=== PATIENT | male | born 1965 | race Caucasian/White ===

== ENCOUNTER 2016-10-23 16:00 | Emergency (ER) | payer MEDICAID ==
[~2016-10-23] VITALS: Ht 172.7 cm; Wt 84.0 kg
[~2016-10-23 16:00] MED LIST: BUSP10TA PO; CEFD300C2 PO; DIAZ10TA4 PO; DIAZ2TAB PO; DIVA250T4 PO; FOLI-17 PO; Folic Acid PO; MULT-484 PO; MULT-750 PO; OLAN20TA3 PO; OMEP20TA62 PO; PRAZ2CAP2 PO; SERT25TA PO; THIA100T6 PO; TRAM50TA2 PO; TRAZ100T15 PO
[2016-10-23 16:06] VITALS: BP 116/87
[2016-10-23] MEDS ORDERED: ONDANSETRON 2MG/ML, 2ML IVPush ONE (16:30)
[2016-10-23] MEDS ORDERED: ONDANSETRON ODT 4 MG PO ONE (16:30)
[2016-10-23] MEDS ORDERED: SODIUM CHLORIDE FLUSH 10ML SYR IVF ONE (16:30)
[2016-10-23] MEDS ORDERED: FAMOTIDINE 20 MG/2 ML IVP ONE (16:30)
[2016-10-23] MEDS ORDERED: LORazepam 1MG TABLET PO ONE (16:30)
[2016-10-23] MEDS ORDERED: LORazepam 2 MG/ML, 1ML IVPush ONE (16:30)
[2016-10-23] MEDS ORDERED: SODIUM CHLORIDE 0.9% 1,000ML IVBOLUS ONE ×2 (16:30)
[2016-10-23] MEDS ORDERED: FAMOTIDINE 20 MG TABLET PO ONE (16:30)
[2016-10-23 16:34] LABS: HEMOGLOBIN 12.1 g/dL (13.7-18.0)
[2016-10-23 16:47] LABS: BLOOD UREA NITROGEN 8 mg/dL (7-18)
[2016-10-23 17:12] LABS: ANISOCYTOSIS 1+; MICROCYTOSIS 1+; TARGET CELLS 1+
== END 2016-10-23 17:19 | disposition left against medical advice (07) ==
LOC: ED 17:13
DX: F10.129 Alcohol abuse with intoxication, unspecified (principal); D64.9 Anemia, unspecified; J44.9 Chronic obstructive pulmonary disease, unspecified; F25.9 Schizoaffective disorder, unspecified
CPT/HCPCS: 36415; 80048; 82040; 85025; 99284

== ENCOUNTER 2016-10-25 04:37 | Emergency (ER) | payer MEDICAID ==
[~2016-10-25] VITALS: Ht 172.7 cm; Wt 81.0 kg
[2016-10-25 04:39] VITALS: BP 111/73
== END 2016-10-25 06:06 | disposition left against medical advice (07) ==
LOC: ED 06:00
DX: R06.02 Shortness of breath (principal); Z53.21 Procedure and treatment not carried out due to patient leaving prior to being seen by health care provider

== ENCOUNTER 2016-10-25 21:22 | Emergency (ER) | payer MEDICAID ==
[~2016-10-25] VITALS: Ht 172.7 cm; Wt 72.0 kg
[2016-10-25 21:25] VITALS: BP 112/70
[2016-10-25] MEDS ORDERED: ALBUTEROL/IPRATROPIUM 2.5MG/0.5MG, 3 ML NPPB ONE (22:00)
[2016-10-25] MEDS ORDERED: THIAMINE 100MG TABLET PO ONE (22:00)
[2016-10-25] MEDS ORDERED: ALBUTEROL/IPRATROPIUM 2.5MG/0.5MG, 3 ML ONE (23:00)
== END 2016-10-25 22:59 | disposition home or self-care (01) ==
LOC: ED 22:07
DX: F10.129 Alcohol abuse with intoxication, unspecified (principal); J44.9 Chronic obstructive pulmonary disease, unspecified; F10.20 Alcohol dependence, uncomplicated; F25.9 Schizoaffective disorder, unspecified
CPT/HCPCS: 71010; 94640; 99283; J7620

== ENCOUNTER 2016-10-27 20:11 | Emergency (ER) | payer MEDICAID ==
[~2016-10-27] VITALS: Ht 175.3 cm; Wt 76.0 kg
[2016-10-27 20:30] VITALS: BP 131/84
[2016-10-27] MEDS ORDERED: THIAMINE 100MG TABLET PO ONE (20:30)
[2016-10-27] MEDS ORDERED: THIAMINE 100MG TABLET ONE (20:42)
== END 2016-10-27 21:17 | disposition left against medical advice (07) ==
LOC: ED 21:11
DX: F10.120 Alcohol abuse with intoxication, uncomplicated (principal); J44.9 Chronic obstructive pulmonary disease, unspecified; F25.9 Schizoaffective disorder, unspecified
CPT/HCPCS: 99283

== ENCOUNTER 2018-01-03 11:58 | Emergency (ER) | payer MEDICAID, OTHER ==
[~2018-01-03] VITALS: Ht 172.7 cm; Wt 82.0 kg
[~2018-01-03 11:58] MED LIST changes: -CEFD300C2 PO; +CEFD300C37 PO
[2018-01-03] MEDS ORDERED: THIAMINE 100MG TABLET PO ONE (12:30)
[2018-01-03] MEDS ORDERED: ZIPRASIDONE 20 MG INJ IM ONE ×2 (13:01→13:30)
[2018-01-03 16:10] VITALS: BP 110/77
== END 2018-01-03 17:34 | disposition home or self-care (01) ==
LOC: ED 17:28
DX: F10.229 Alcohol dependence with intoxication, unspecified (principal); F22 Delusional disorders; F25.9 Schizoaffective disorder, unspecified; F17.200 Nicotine dependence, unspecified, uncomplicated; J44.9 Chronic obstructive pulmonary disease, unspecified; F43.10 Post-traumatic stress disorder, unspecified
CPT/HCPCS: 96372; 99284; J3486

== ENCOUNTER 2018-05-16 21:14 | Emergency (ER) | payer MEDICAID ==
[~2018-05-16] VITALS: Ht 172.7 cm; Wt 80.8 kg
[~2018-05-16 21:14] MED LIST changes: -THIA100T6 PO; +THIA100T67 PO; +TRAZ-137 PO; -TRAZ100T15 PO
[2018-05-16 21:16] VITALS: BP 109/67
[2018-05-16] MEDS ORDERED: ALBUTEROL SULFATE 2.5 MG/3 ML NPPB ONE (22:00)
[2018-05-16 22:11] LABS: BASOPHILS # (AUTO) 0.04 x10^3/uL (0-0.1); BASOPHILS % (AUTO) 1 % (0-1); EOSINOPHILS % (AUTO) 4 % (1-7); LYMPHOCYTES # (AUTO) 2.25 x10^3/uL (1-3.4); LYMPHOCYTES % (AUTO) 31 % (22-44); MD NO; MEAN CORPUSCULAR HEMOGLOBIN 29.7 pg (27.5-34.5); MEAN CORPUSCULAR HGB CONC 33.5 g/dL (33.2-36.2); MEAN CORPUSCULAR VOLUME 88.6 fL (81-97); MEAN PLATELET VOLUME 8.4 fL (7.4-10.4); MONOCYTES # (AUTO) 0.71 x10^3/uL (0.2-0.8); MONOCYTES % (AUTO) 10 % (2-9); NEUTROPHILS # (AUTO) 3.96 x10^3/uL (1.8-6.8); NEUTROPHILS % (AUTO) 55 % (42-75); PLATELET COUNT 268 x10^3/uL (130-400); RED BLOOD COUNT 5.34 x10^6/uL (4.38-5.82); RED CELL DISTRIBUTION WIDTH 15.4 % (9.4-14.8)
[2018-05-16] MEDS ORDERED: CARI1.5C2 PO (22:19)
[2018-05-16 22:21] LABS: ALANINE AMINOTRANSFERASE 18 U/L (12-78); ALBUMIN 3.8 g/dL (3.4-5.0); ANION GAP 7 mmol/L (5-15); CALCIUM 8.8 mg/dL (8.5-10.1); CHLORIDE 106 mmol/L (98-107); CREATININE 0.96 mg/dL (0.7-1.3); SALICYLATE LEVEL 3.9 mg/dL (2.8-20.0)
[2018-05-16 22:23] LABS: ALKALINE PHOSPHATASE 83 U/L (45-117); BILIRUBIN,TOTAL 0.4 mg/dL (0.2-1.0); TOTAL PROTEIN 8.3 g/dL (6.4-8.2)
[2018-05-16 22:24] LABS: ACETAMINOPHEN < 2 mcg/mL (10-30)
[2018-05-16 22:26] LABS: AMPHETAMINE SCREEN, URINE Negative (Negative); BARBITURATE SCREEN, URINE Negative (Negative); BENZODIAZEPINE SCREEN, URINE Positive (Negative); CANNABINOID SCREEN, URINE Negative (Negative); COCAINE SCREEN, URINE Negative (Negative); METHADONE SCREEN, URINE Negative (Negative); OPIATE SCREEN, URINE Negative (Negative)
[2018-05-16] MEDS ORDERED: ALBUTEROL/IPRATROPIUM 2.5MG/0.5MG, 3 ML ONE (22:41)
== END 2018-05-17 03:26 | disposition home or self-care (01) ==
LOC: ED 23:45
DX: F32.9 Major depressive disorder, single episode, unspecified (principal); R05 Cough; J44.9 Chronic obstructive pulmonary disease, unspecified; F25.9 Schizoaffective disorder, unspecified
CPT/HCPCS: 36415; 71045; 80053; 80307; 80329; 85025; 94640; 99285; J7613; G0480

== ENCOUNTER 2018-06-09 14:42 | Emergency (ER) | payer MEDICAID ==
[~2018-06-09] VITALS: Ht 170.2 cm; Wt 65.0 kg
[~2018-06-09 14:42] MED LIST changes: +CARI1.5C2 PO
[2018-06-09] MEDS ORDERED: THIAMINE 100MG TABLET PO ONE (15:00)
[2018-06-09 15:13] VITALS: BP 92/60
== END 2018-06-09 15:21 | disposition left against medical advice (07) ==
LOC: ED 15:15
DX: F10.120 Alcohol abuse with intoxication, uncomplicated (principal); J44.9 Chronic obstructive pulmonary disease, unspecified; F20.9 Schizophrenia, unspecified; F32.9 Major depressive disorder, single episode, unspecified; F17.200 Nicotine dependence, unspecified, uncomplicated
CPT/HCPCS: 99283

== ENCOUNTER 2019-01-03 21:13 | Emergency (ER) | payer MEDICAID ==
[~2019-01-03] VITALS: Ht 175.3 cm; Wt 84.0 kg
[2019-01-03 21:15] VITALS: BP 123/84
--- NOTE | 2019-01-03 21:19 | NUR ---
DESIRAE. REPORT RECEIVED FROM EMS. PT AMB TO ROOM WITH STEADY GAIT. +ETOT. PT HERE FOR DETOX. NO TRAUMA/LOC. PT'S AOX4. RESPS EVEN AND UNLABORED. BP/SPO2 MONITORS IN PLACE. CALL LIGHT WITHIN REACH. PA AT BEDSIDE TO ASSESS AT THIS TIME.
--- NOTE | 2019-01-03 21:30 | NUR ---
PT GIVEN DC INSTRUCTIONS. PT'S AOX4. RESPS EVEN AND UNLABORED. PT AMB TO DC WITH STEADY GAIT. TAXI VOUCHER GIVEN AT DC.
== END 2019-01-03 21:31 | disposition home or self-care (01) ==
LOC: ED 21:25
DX: F10.120 Alcohol abuse with intoxication, uncomplicated (principal); Z72.9 Problem related to lifestyle, unspecified; F17.200 Nicotine dependence, unspecified, uncomplicated; J44.9 Chronic obstructive pulmonary disease, unspecified; Z86.19 Personal history of other infectious and parasitic diseases
CPT/HCPCS: 99283

== ENCOUNTER 2019-01-13 22:52 | Emergency (ER) | payer MEDICAID ==
[~2019-01-13] VITALS: Ht 175.3 cm; Wt 70.0 kg
[2019-01-13 22:55] VITALS: BP 166/72
--- NOTE | 2019-01-13 23:14 | NUR ---
PT STATED HE WAS LEAVING TO GO TO [place], AMBULATED OUT WITH STEADY GAIT
== END 2019-01-13 23:16 | disposition left against medical advice (07) ==
LOC: ED 23:10
DX: F10.129 Alcohol abuse with intoxication, unspecified (principal); Z72.9 Problem related to lifestyle, unspecified; J44.9 Chronic obstructive pulmonary disease, unspecified; Z87.891 Personal history of nicotine dependence
CPT/HCPCS: 99283

== ENCOUNTER 2019-03-04 18:04 | Emergency (ER) | payer MEDICAID ==
[~2019-03-04] VITALS: Ht 172.7 cm; Wt 85.0 kg
[2019-03-04 18:24] VITALS: BP 116/71
== END 2019-03-04 18:37 | disposition left against medical advice (07) ==
LOC: ED 18:31
DX: F10.220 Alcohol dependence with intoxication, uncomplicated (principal); J44.9 Chronic obstructive pulmonary disease, unspecified; F25.9 Schizoaffective disorder, unspecified; F32.9 Major depressive disorder, single episode, unspecified; F29 Unspecified psychosis not due to a substance or known physiological condition; F43.10 Post-traumatic stress disorder, unspecified; Z72.9 Problem related to lifestyle, unspecified; Z75.9 Unspecified problem related to medical facilities and other health care; Z91.14 Patient's other noncompliance with medication regimen; Z63.8 Other specified problems related to primary support group; Y90.9 Presence of alcohol in blood, level not specified
CPT/HCPCS: 99283

== ENCOUNTER 2019-04-13 19:44 | Emergency (ER) | payer MEDICAID ==
[~2019-04-13] VITALS: Ht 167.6 cm; Wt 100.0 kg
== END 2019-04-13 20:14 | disposition home or self-care (01) ==
LOC: ED 20:01
DX: F10.20 Alcohol dependence, uncomplicated (principal); J44.9 Chronic obstructive pulmonary disease, unspecified; F25.9 Schizoaffective disorder, unspecified; F32.9 Major depressive disorder, single episode, unspecified; F17.200 Nicotine dependence, unspecified, uncomplicated; F43.10 Post-traumatic stress disorder, unspecified; F29 Unspecified psychosis not due to a substance or known physiological condition; Z72.9 Problem related to lifestyle, unspecified; Z75.9 Unspecified problem related to medical facilities and other health care; Z91.14 Patient's other noncompliance with medication regimen; Z63.8 Other specified problems related to primary support group; Y90.9 Presence of alcohol in blood, level not specified
CPT/HCPCS: 99283

== ENCOUNTER 2019-05-27 21:39 | Emergency (ER) | payer MEDICAID ==
[~2019-05-27] VITALS: Ht 172.7 cm; Wt 87.4 kg
--- NOTE | 2019-05-27 22:40 | NUR ---
PT TRYING TO GET UP OUT OF BED, STATED HE WANT TO LEAVE AMA. PT VERBALLY ABUSIVE TOWARD STAFF AND BALLING UP FISTS. PT UNABLE TO AMBULATE STEADLY ON OWN. PT PLACED IN TWO POINT RESTRAINTS. WILL CONTINUE TO MONITOR. SITTER AT DOOR.
--- NOTE | 2019-05-27 23:16 | NUR ---
patient requested to be removed from restraints. the criteria for restraint removal has been explained to the patient, no evidence of learning has been exhibited. patient will be given adequate amount of time to make informed decisions about his plan of care. sitter at bedside, will continue to monitor.
[2019-05-27 23:42] VITALS: BP 108/63
--- NOTE | 2019-05-27 23:42 | NUR ---
patient released from restraints. patient can ambulate without assistance. patient stated that he was ready to be discharged, md cleared patient for discharge, no noted acute distress, vital signs stable. patient given self care instructions.
--- NOTE | 2019-05-27 23:57 | NUR ---
patient given two bags of belongings.
== END 2019-05-27 23:44 | disposition home or self-care (01) ==
LOC: ED 22:18
DX: F10.120 Alcohol abuse with intoxication, uncomplicated (principal); Z72.9 Problem related to lifestyle, unspecified; J44.9 Chronic obstructive pulmonary disease, unspecified; F20.9 Schizophrenia, unspecified; F32.9 Major depressive disorder, single episode, unspecified; F43.10 Post-traumatic stress disorder, unspecified; F17.200 Nicotine dependence, unspecified, uncomplicated
CPT/HCPCS: 99281

== ENCOUNTER 2019-08-01 14:58 | Emergency (ER) | payer MEDICAID ==
[~2019-08-01] VITALS: Ht 172.7 cm; Wt 91.0 kg
[2019-08-01 15:08] VITALS: BP 110/70
[2019-08-01] MEDS ORDERED: DIPH,PERTUSS(ACELL),TET VAC/PF 0.5 ML IM-VACC ONE ×2 (15:26→15:30)
--- NOTE | 2019-08-01 15:29 | NUR ---
PT HAS FACIAL LACERATION FROM FALLING DOWN STAIRS AND SWOLLEN LEFT CHEECK, LIP. PT STATES HE IS INTOXICATED. GIVEN TOWELS TO CLEAN UP FACE. PT IS REFUSING TDAP. RN EDUCATED ABOUT TDAP INJECTIONS. PT YELLS AT RN "I DO NOT WANT NO SHOT I DONT KNOW ABOUT".PT YELLING AT RN DEMANDING PAIN MEDICINES.
--- NOTE | 2019-08-01 15:57 | NUR ---
PT ELOPED FROM ROOM, NOT SEEN ANYWHERE. GOWN ON FLOOR, MD AWARE. RN GAVE INFO TO [employer] TO SEARCH FOR PT.
[2019-08-01] MEDS ORDERED: PROP10TA51 PO (22:07)
[2019-08-01] MEDS ORDERED: TOPI100T39 PO (22:07)
[2019-08-01] MEDS ORDERED: OLAN20TA14 PO (22:07)
[2019-08-01] MEDS ORDERED: NALT50TA PO (22:07)
[2019-08-01] MEDS ORDERED: CLON1TAB11 PO (22:07)
[2019-08-01] MEDS ORDERED: ESCI20TA PO (22:07)
[2019-08-01] MEDS ORDERED: TRAZ-137 PO (22:07)
[2019-08-01] MEDS ORDERED: RISP4TAB2 PO (22:07)
[2019-08-02] MEDS ORDERED: TEMA15CA PO (12:39)
== END 2019-08-01 16:56 | disposition left against medical advice (07) ==
LOC: ED 16:51
DX: S09.93XA Unspecified injury of face, initial encounter (principal); J44.9 Chronic obstructive pulmonary disease, unspecified; F10.129 Alcohol abuse with intoxication, unspecified; Y90.0 Blood alcohol level of less than 20 mg/100 ml; W10.8XXA Fall (on) (from) other stairs and steps, initial encounter; Y93.89 Activity, other specified; Y92.410 Unspecified street and highway as the place of occurrence of the external cause; Y99.8 Other external cause status
CPT/HCPCS: 99283

== ENCOUNTER 2019-08-01 18:13 | Inpatient (IN) | payer MEDICAID ==
[~2019-08-01] VITALS: Ht 170.2 cm; Wt 85.3 kg
[2019-08-01] MEDS ORDERED: DIPH,PERTUSS(ACELL),TET VAC/PF 0.5 ML IM-VACC ONE (19:00)
[2019-08-01] MEDS ORDERED: PLEASE ENTER HEIGHT AND WEIGHT MC SCH (19:00)
--- NOTE | 2019-08-01 19:09 | NUR ---
BIB EMS FOR FACIAL INJURY. PT WAS REFUSED BY [facility] AND WAS BIB EMS. PT STATES HE FELL DOWN STAIRS. PT IS REFUSING TO GET IN GOWN. IV ESTABLISHED PER EMS, GIVEN TOWELS TO CLEAN MOUTH. PT COMPLETED CT. NOW RESTING ON GURNEY. VS STABLE.
[2019-08-01] MEDS ORDERED: CEFAZOLIN 1,000 MG IM ONE (19:42)
[2019-08-01] MEDS ORDERED: CEFAZOLIN 1,000 MG ONE (19:45)
--- NOTE | 2019-08-01 19:56 | NUR ---
MD AT BEDSIDE REQUESTING TO LOOK AT MOUTH FOR INJURY. RN ASSISTING, PT YELLING AND STATES "FUCK YOU" TO DR. DUNN. MEDICATED W ANCEF, AND TDAP. EMT ATTEMPTING TO CLEAN MOUTH
[2019-08-01] MEDS ORDERED: LORazepam 2 MG/ML, 1ML IVPush PRN (20:30)
[2019-08-01] MEDS ORDERED: BISACODYL 10 MG SUPP PR PRN (20:30)
[2019-08-01] MEDS ORDERED: POTASSIUM CHLORIDE 20 MEQ, MAGNESIUM SULFATE 2 GM, THIAMINE 200 MG, MVI ADULT 10 ML, FO... IV SCH (20:30)
[2019-08-01] MEDS ORDERED: ONDANSETRON 2MG/ML, 2ML IVPush PRN (20:30)
--- NOTE | 2019-08-01 20:30 | NUR ---
PT GIVEN GAUZE FOR MOUTH. RN INSTRUCTED PT TO STAY IN BED AND CALL FOR HELP. [facility] AT BEDSIDE.
--- NOTE | 2019-08-01 20:54 | NUR ---
PT AT SINK WASHING OUT MOUTH. RN INSTRUCTED PT TO STAY IN [facility] FOR SAFETY. REPORT TO VEANGELINA Orlando
--- NOTE | 2019-08-01 21:01 | NUR ---
REPORT TO ELIEZER
[2019-08-01 21:49] VITALS: BP 99/64
[2019-08-01 21:51] VITALS: BP 99/64
[2019-08-01] MEDS ORDERED: RISP4TAB2 PO (22:07)
[2019-08-01] MEDS ORDERED: CLON1TAB11 PO (22:07)
[2019-08-01] MEDS ORDERED: TRAZ-137 PO (22:07)
[2019-08-01] MEDS ORDERED: NALT50TA PO (22:07)
[2019-08-01] MEDS ORDERED: OLAN20TA14 PO (22:07)
[2019-08-01] MEDS ORDERED: TOPI100T39 PO (22:07)
[2019-08-01] MEDS ORDERED: ESCI20TA PO (22:07)
[2019-08-01] MEDS ORDERED: PROP10TA51 PO (22:07)
[2019-08-01] MEDS: NICOTINE 21 MG/24 HR PATCH.TD24 TD SCH (23:54)
[2019-08-02] MEDS: morphine SULFATE 10 MG/ML, 1ML IVPush PRN ×2 (03:28→04:07)
[2019-08-02 03:39] VITALS: BP 106/69
[2019-08-02 04:23] LABS: BASOPHILS # (AUTO) 0.03 x10^3/uL (0-0.1); BASOPHILS % (AUTO) 0 % (0-1); EOSINOPHILS # (AUTO) 0.26 x10^3/uL (0-0.4); EOSINOPHILS % (AUTO) 2 % (1-7); LYMPHOCYTES # (AUTO) 1.23 x10^3/uL (1-3.4); LYMPHOCYTES % (AUTO) 11 % (22-44); MD NO; MEAN CORPUSCULAR HEMOGLOBIN 30.3 pg (27.5-34.5); MEAN CORPUSCULAR HGB CONC 32.6 g/dL (33.2-36.2); MEAN CORPUSCULAR VOLUME 93.1 fL (81-97); MEAN PLATELET VOLUME 7.4 fL (7.4-10.4); MONOCYTES # (AUTO) 0.72 x10^3/uL (0.2-0.8); MONOCYTES % (AUTO) 7 % (2-9); NEUTROPHILS # (AUTO) 8.68 x10^3/uL (1.8-6.8); NEUTROPHILS % (AUTO) 80 % (42-75); PLATELET COUNT 373 x10^3/uL (130-400); RED BLOOD COUNT 4.73 x10^6/uL (4.38-5.82); RED CELL DISTRIBUTION WIDTH 17.3 % (9.4-14.8)
[2019-08-02 04:32] LABS: CHLORIDE 111 mmol/L (98-107)
[2019-08-02 04:40] LABS: ALANINE AMINOTRANSFERASE 24 U/L (12-78); ALBUMIN 3.3 g/dL (3.4-5.0); ALKALINE PHOSPHATASE 63 U/L (45-117); ANION GAP 8 mmol/L (5-15); BILIRUBIN,TOTAL 0.4 mg/dL (0.2-1.0); CALCIUM 8.1 mg/dL (8.5-10.1); TOTAL PROTEIN 7.7 g/dL (6.4-8.2)
[2019-08-02 07:19] VITALS: BP 91/66
[2019-08-02] MEDS ORDERED: LORazepam 2 MG/ML, 1ML IV PRN ×3 (08:00)
[2019-08-02] MEDS ORDERED: LORazepam 1MG TABLET PO PRN ×2 (08:00)
[2019-08-02] MEDS ORDERED: LORazepam 0.5MG TABLET PO PRN (08:00)
[2019-08-02 08:05] VITALS: BP 114/74
[2019-08-02] MEDS: MORPHINE SULFATE 4 MG/ML, 1ML IVPush PRN ×4 (08:08→20:15)
[2019-08-02 09:24] LABS: INTERNATIONAL NORMALIZED RATIO 0.93 (0.93-1.1); PROTHROMBIN TIME 9.8 Seconds (9.6-11.5)
[2019-08-02] MEDS: ACETAMINOPHEN 325 MG TABLET PO SCH ×3 (11:58→23:57)
[2019-08-02] MEDS: THIAMINE 100MG TABLET PO SCH (11:58)
[2019-08-02 12:28] VITALS: BP 127/83
[2019-08-02] MEDS ORDERED: TEMA15CA PO (12:39)
[2019-08-02] MEDS ORDERED: PRAZOSIN 2 MG CAPSULE PO PRN (13:00)
[2019-08-02 20:00] VITALS: BP 107/72
[2019-08-02] MEDS: NICOTINE 21 MG/24 HR PATCH.TD24 TD SCH (20:14)
[2019-08-02] MEDS: TEMAZEPAM 15 MG CAPSULE PO SCH (20:15)
[2019-08-02] MEDS: OLANZAPINE 5 MG TABLET PO SCH (20:15)
[2019-08-02] MEDS: TOPIRAMATE 25 MG TABLET PO SCH (20:16)
[2019-08-02] MEDS: FLUTICASONE NASAL SPRAY 16GM NAS PRN (22:35)
[2019-08-03] MEDS: TRAZODONE 100MG TABLET PO PRN ×2 (00:01→21:20)
[2019-08-03] MEDS: MORPHINE SULFATE 4 MG/ML, 1ML IVPush PRN ×7 (00:02→23:52)
[2019-08-03 00:20] VITALS: BP 99/95
[2019-08-03 04:49] LABS: BASOPHILS # (AUTO) 0.02 x10^3/uL (0-0.1); BASOPHILS % (AUTO) 0 % (0-1); EOSINOPHILS # (AUTO) 0.34 x10^3/uL (0-0.4); EOSINOPHILS % (AUTO) 5 % (1-7); LYMPHOCYTES # (AUTO) 1.23 x10^3/uL (1-3.4); LYMPHOCYTES % (AUTO) 18 % (22-44); MD NO; MEAN CORPUSCULAR HEMOGLOBIN 30.2 pg (27.5-34.5); MEAN CORPUSCULAR HGB CONC 32.2 g/dL (33.2-36.2); MEAN CORPUSCULAR VOLUME 93.7 fL (81-97); MONOCYTES % (AUTO) 10 % (2-9); NEUTROPHILS # (AUTO) 4.73 x10^3/uL (1.8-6.8); NEUTROPHILS % (AUTO) 67 % (42-75); PLATELET COUNT 248 x10^3/uL (130-400); RED BLOOD COUNT 4.36 x10^6/uL (4.38-5.82); RED CELL DISTRIBUTION WIDTH 16.5 % (9.4-14.8)
[2019-08-03] MEDS: ACETAMINOPHEN 325 MG TABLET PO SCH ×4 (05:36→23:52)
[2019-08-03] MEDS ORDERED: COCAINE TOPICAL SOLN 4%, 4ML ONE (06:58)
[2019-08-03] MEDS ORDERED: BACITRACIN OINT 500U/GM, 15 GM ONE (06:58)
[2019-08-03] MEDS ORDERED: OXYMETAZOLINE NASAL SPRAY 0.05%, 15ML ONE (06:58)
[2019-08-03] MEDS ORDERED: LIDOCAINE 1%-EPI 1:100K, 20ML ONE (06:58)
[2019-08-03] MEDS ORDERED: FENTANYL PF 250 MCG/5ML ONE (07:29)
[2019-08-03] MEDS ORDERED: MIDAZOLAM 1 MG/ML, 2ML ONE (07:29)
[2019-08-03] MEDS: ENOXAPARIN 40 MG/0.4 ML SQ SCH (07:34)
[2019-08-03] MEDS ORDERED: SUCCINYLCHOLINE 20 MG/ML, 10ML ONE (07:35)
[2019-08-03] MEDS ORDERED: PROPOFOL 10 MG/ML, 20ML ONE (07:35)
[2019-08-03] MEDS ORDERED: ONDANSETRON 2MG/ML, 2ML ONE (07:35)
[2019-08-03] MEDS ORDERED: DEXAMETHASONE 4 MG/ML, 1ML ONE (07:35)
[2019-08-03] MEDS ORDERED: OXYMETAZOLINE NASAL SPRAY 0.05%, 15ML NAS ONE (07:50)
[2019-08-03] MEDS ORDERED: COCAINE TOPICAL SOLN 4%, 4ML TP ONE (07:50)
[2019-08-03] MEDS ORDERED: PROMETHAZINE 25 MG/ML, 1ML IV PRN (08:00)
[2019-08-03] MEDS ORDERED: hydrALAzine 20 MG/ML, 1ML IV PRN (08:00)
[2019-08-03] MEDS ORDERED: OXYcodone 5 MG/5 ML ORAL.SOL UDC PO PRN (08:00)
[2019-08-03] MEDS ORDERED: HYDROmorphone 2 MG/ML, 1ML IVPush PRN (08:00)
[2019-08-03] MEDS ORDERED: MEPERIDINE/PF 25MG/ML,1ML IVPush PRN (08:00)
[2019-08-03] MEDS ORDERED: ACETAMINOPHEN 325 MG TABLET PO PRN (08:00)
[2019-08-03] MEDS ORDERED: FENTANYL PF 100 MCG/2ML IV PRN (08:00)
[2019-08-03] MEDS ORDERED: MIDAZOLAM 1 MG/ML, 2ML IV PRN (08:00)
[2019-08-03 09:12] VITALS: BP 137/69
[2019-08-03] MEDS: TOPIRAMATE 25 MG TABLET PO SCH ×2 (09:48→20:16)
[2019-08-03] MEDS: THIAMINE 100MG TABLET PO SCH (09:48)
[2019-08-03] MEDS: ESCITALOPRAM 10MG TABLET PO SCH (09:48)
[2019-08-03] MEDS: AMOXICILLIN/CLAV 875-125MG TABLET PO SCH ×2 (10:51→20:15)
[2019-08-03 14:16] VITALS: BP 103/71
[2019-08-03] MEDS: MULTIVITAMIN 1 TABLET PO SCH (17:45)
[2019-08-03] MEDS: FOLIC ACID 1 MG TABLET PO SCH (17:45)
[2019-08-03 20:00] VITALS: BP 105/71
[2019-08-03] MEDS: NICOTINE 21 MG/24 HR PATCH.TD24 TD SCH (20:15)
[2019-08-03] MEDS: TEMAZEPAM 15 MG CAPSULE PO SCH (20:15)
[2019-08-03] MEDS: OLANZAPINE 5 MG TABLET PO SCH (20:16)
[2019-08-03] MEDS: FLUTICASONE NASAL SPRAY 16GM NAS PRN (20:19)
[2019-08-04 01:12] VITALS: BP 115/75
[2019-08-04] MEDS: FLUTICASONE NASAL SPRAY 16GM NAS PRN ×2 (03:47→22:09)
[2019-08-04] MEDS: MORPHINE SULFATE 4 MG/ML, 1ML IVPush PRN (04:21)
[2019-08-04 06:15] VITALS: BP 103/65
[2019-08-04] MEDS: ACETAMINOPHEN 325 MG TABLET PO SCH ×3 (08:26→21:18)
[2019-08-04] MEDS: AMOXICILLIN/CLAV 875-125MG TABLET PO SCH ×2 (08:26→21:18)
[2019-08-04] MEDS: MULTIVITAMIN 1 TABLET PO SCH (08:26)
[2019-08-04] MEDS: FOLIC ACID 1 MG TABLET PO SCH (08:26)
[2019-08-04] MEDS: THIAMINE 100MG TABLET PO SCH (08:26)
[2019-08-04] MEDS: HYDROcodone/APAP 5/325 TABLET PO PRN ×4 (08:26→21:19)
[2019-08-04] MEDS: TOPIRAMATE 25 MG TABLET PO SCH ×2 (08:27→21:19)
[2019-08-04] MEDS: ESCITALOPRAM 10MG TABLET PO SCH (08:27)
[2019-08-04] MEDS: ENOXAPARIN 40 MG/0.4 ML SQ SCH ×2 (10:47→10:50)
[2019-08-04 12:12] VITALS: BP_SYST 111; BP_SYST 134; BP_DIAS 69; BP_DIAS 72
[2019-08-04 20:38] VITALS: BP 108/71
[2019-08-04] MEDS: NICOTINE 21 MG/24 HR PATCH.TD24 TD SCH (21:18)
[2019-08-04] MEDS: TRAZODONE 100MG TABLET PO PRN (21:18)
[2019-08-04] MEDS: OLANZAPINE 5 MG TABLET PO SCH (21:18)
[2019-08-04] MEDS: TEMAZEPAM 15 MG CAPSULE PO SCH (21:18)
[2019-08-05 00:55] VITALS: BP 112/70
[2019-08-05] MEDS: ACETAMINOPHEN 325 MG TABLET PO SCH ×4 (02:00→20:43)
[2019-08-05 06:38] VITALS: BP 98/64
[2019-08-05] MEDS: HYDROcodone/APAP 5/325 TABLET PO PRN ×4 (06:42→20:43)
[2019-08-05] MEDS: FOLIC ACID 1 MG TABLET PO SCH (08:56)
[2019-08-05] MEDS: ESCITALOPRAM 10MG TABLET PO SCH (08:56)
[2019-08-05] MEDS: AMOXICILLIN/CLAV 875-125MG TABLET PO SCH ×2 (08:56→20:42)
[2019-08-05] MEDS: THIAMINE 100MG TABLET PO SCH (08:56)
[2019-08-05] MEDS: TOPIRAMATE 25 MG TABLET PO SCH ×2 (08:57→20:42)
[2019-08-05] MEDS: MULTIVITAMIN 1 TABLET PO SCH (08:57)
[2019-08-05] MEDS: ENOXAPARIN 40 MG/0.4 ML SQ SCH (11:04)
[2019-08-05 12:33] VITALS: BP 97/63
[2019-08-05 20:03] VITALS: BP 115/68
[2019-08-05] MEDS: OLANZAPINE 5 MG TABLET PO SCH (20:42)
[2019-08-05] MEDS: TRAZODONE 100MG TABLET PO PRN (20:42)
[2019-08-05] MEDS: TEMAZEPAM 15 MG CAPSULE PO SCH (20:42)
[2019-08-05] MEDS: NICOTINE 21 MG/24 HR PATCH.TD24 TD SCH (20:43)
[2019-08-06 01:05] VITALS: BP 117/68
[2019-08-06] MEDS: ACETAMINOPHEN 325 MG TABLET PO SCH ×4 (01:28→19:17)
[2019-08-06] MEDS: HYDROcodone/APAP 5/325 TABLET PO PRN ×5 (02:58→20:20)
[2019-08-06] MEDS: LORazepam 0.5MG TABLET PO PRN ×2 (03:01→12:19)
[2019-08-06] MEDS: TOPIRAMATE 25 MG TABLET PO SCH ×2 (07:39→20:20)
[2019-08-06] MEDS: AMOXICILLIN/CLAV 875-125MG TABLET PO SCH ×2 (07:39→20:20)
[2019-08-06] MEDS: MULTIVITAMIN 1 TABLET PO SCH (07:39)
[2019-08-06] MEDS: FOLIC ACID 1 MG TABLET PO SCH (07:39)
[2019-08-06] MEDS: THIAMINE 100MG TABLET PO SCH (07:39)
[2019-08-06] MEDS: ESCITALOPRAM 10MG TABLET PO SCH (07:39)
[2019-08-06] MEDS: FLUTICASONE NASAL SPRAY 16GM NAS PRN ×2 (07:40→14:05)
[2019-08-06] MEDS: ENOXAPARIN 40 MG/0.4 ML SQ SCH (07:43)
[2019-08-06 08:21] VITALS: BP 103/70
[2019-08-06 12:19] VITALS: BP 106/70
[2019-08-06 19:51] VITALS: BP 111/77
[2019-08-06] MEDS: NICOTINE 21 MG/24 HR PATCH.TD24 TD SCH (20:19)
[2019-08-06] MEDS: OLANZAPINE 5 MG TABLET PO SCH (20:20)
[2019-08-06] MEDS: TEMAZEPAM 15 MG CAPSULE PO SCH (20:20)
[2019-08-06] MEDS ORDERED: TRAZODONE 100MG TABLET PO PRN (22:30)
[2019-08-07] MEDS: ACETAMINOPHEN 325 MG TABLET PO SCH ×4 (01:08→20:00)
[2019-08-07 02:20] VITALS: BP 115/74
[2019-08-07] MEDS: HYDROcodone/APAP 5/325 TABLET PO PRN ×5 (02:20→20:32)
[2019-08-07 07:16] VITALS: BP 82/50
[2019-08-07] MEDS: MULTIVITAMIN 1 TABLET PO SCH (08:10)
[2019-08-07] MEDS: THIAMINE 100MG TABLET PO SCH (08:10)
[2019-08-07] MEDS: FOLIC ACID 1 MG TABLET PO SCH (08:10)
[2019-08-07] MEDS: AMOXICILLIN/CLAV 875-125MG TABLET PO SCH ×2 (08:10→20:31)
[2019-08-07] MEDS: ESCITALOPRAM 10MG TABLET PO SCH (08:10)
[2019-08-07] MEDS: TOPIRAMATE 25 MG TABLET PO SCH ×2 (08:10→20:31)
[2019-08-07] MEDS: ENOXAPARIN 40 MG/0.4 ML SQ SCH (08:14)
[2019-08-07] MEDS: LORazepam 0.5MG TABLET PO PRN ×2 (12:02→20:32)
[2019-08-07 13:08] VITALS: BP 102/68
[2019-08-07 19:02] VITALS: BP 109/73
[2019-08-07] MEDS: OLANZAPINE 5 MG TABLET PO SCH (20:31)
[2019-08-07] MEDS: TEMAZEPAM 15 MG CAPSULE PO SCH (20:31)
[2019-08-07] MEDS: NICOTINE 21 MG/24 HR PATCH.TD24 TD SCH (20:32)
[2019-08-08 01:39] VITALS: BP 106/72
[2019-08-08] MEDS: ACETAMINOPHEN 325 MG TABLET PO SCH ×2 (02:00→07:49)
[2019-08-08] MEDS: HYDROcodone/APAP 5/325 TABLET PO PRN ×2 (03:49→07:50)
[2019-08-08 05:33] LABS: BASOPHILS # (AUTO) 0.06 x10^3/uL (0-0.1); BASOPHILS % (AUTO) 1 % (0-1); EOSINOPHILS # (AUTO) 0.37 x10^3/uL (0-0.4); EOSINOPHILS % (AUTO) 5 % (1-7); LYMPHOCYTES # (AUTO) 2.05 x10^3/uL (1-3.4); LYMPHOCYTES % (AUTO) 28 % (22-44); MD NO; MEAN CORPUSCULAR HEMOGLOBIN 29.8 pg (27.5-34.5); MEAN CORPUSCULAR HGB CONC 32.6 g/dL (33.2-36.2); MEAN CORPUSCULAR VOLUME 91.5 fL (81-97); MEAN PLATELET VOLUME 8.2 fL (7.4-10.4); MONOCYTES # (AUTO) 0.73 x10^3/uL (0.2-0.8); MONOCYTES % (AUTO) 10 % (2-9); NEUTROPHILS # (AUTO) 4.23 x10^3/uL (1.8-6.8); NEUTROPHILS % (AUTO) 57 % (42-75); PLATELET COUNT 301 x10^3/uL (130-400); RED CELL DISTRIBUTION WIDTH 16.3 % (9.4-14.8)
[2019-08-08 05:40] LABS: CHLORIDE 111 mmol/L (98-107)
[2019-08-08 05:44] LABS: ANION GAP 7 mmol/L (5-15); CALCIUM 8.6 mg/dL (8.5-10.1)
[2019-08-08 07:15] VITALS: BP 103/70
[2019-08-08] MEDS: FOLIC ACID 1 MG TABLET PO SCH (07:50)
[2019-08-08] MEDS: TOPIRAMATE 25 MG TABLET PO SCH (07:50)
[2019-08-08] MEDS: MULTIVITAMIN 1 TABLET PO SCH (07:50)
[2019-08-08] MEDS: AMOXICILLIN/CLAV 875-125MG TABLET PO SCH (07:50)
[2019-08-08] MEDS: ESCITALOPRAM 10MG TABLET PO SCH (07:50)
[2019-08-08] MEDS: ENOXAPARIN 40 MG/0.4 ML SQ SCH (07:51)
[2019-08-08] MEDS: THIAMINE 100MG TABLET PO SCH (07:51)
[2019-08-08] MEDS ORDERED: HYDR-3237 PO (10:47)
[2019-08-08 10:51] VITALS: BP 99/67
== END 2019-08-08 11:48 | disposition home or self-care (01) | DRG 155 ==
LOC: ED 19:33 → EDIP 20:07 → 4EST 21:27 → DCLOUNGE 08-08 11:42
PROVIDERS: ADMIT Internal Medicine; ATTEND Hospitalist
PROC: 0NSBXZZ Reposition Nasal Bone, External Approach (ICD-10-PCS; principal; 2019-08-03 07:30)
DX: S02.2XXA Fracture of nasal bones, initial encounter for closed fracture (principal); S02.32XA Fracture of orbital floor, left side, initial encounter for closed fracture; F10.239 Alcohol dependence with withdrawal, unspecified; W10.9XXA Fall (on) (from) unspecified stairs and steps, initial encounter; F10.220 Alcohol dependence with intoxication, uncomplicated; F17.210 Nicotine dependence, cigarettes, uncomplicated; F25.9 Schizoaffective disorder, unspecified; F32.9 Major depressive disorder, single episode, unspecified; H05.89 Other disorders of orbit; L40.9 Psoriasis, unspecified; Z79.899 Other long term (current) drug therapy; Z81.8 Family history of other mental and behavioral disorders; Z91.19 Patient's noncompliance with other medical treatment and regimen; Y93.89 Activity, other specified; Y92.89 Other specified places as the place of occurrence of the external cause; Y99.8 Other external cause status
CPT/HCPCS: 36415; 99285; J7042; 70486; 80048; 80053; 85025; 85610; 90715; G0378; J1100; J1650; J2250; J2405; J2704; J3010; J3411; J3475; J3480; J3490; J0330; J2060; J2270

== ENCOUNTER 2019-08-08 20:42 | Emergency (ER) | payer MEDICAID ==
[~2019-08-08] VITALS: Ht 172.7 cm; Wt 88.0 kg
[~2019-08-08 20:42] MED LIST changes: +CLON1TAB11 PO; +ESCI20TA PO; +HYDR-3237 PO; +NALT50TA PO; +OLAN20TA14 PO; +PROP10TA51 PO; +RISP4TAB2 PO; +TEMA15CA PO; +TOPI100T39 PO
[2019-08-08 20:47] VITALS: BP 116/83
--- NOTE | 2019-08-08 21:34 | NUR ---
PT UP AND WALKING OUT AMBULANCE BAY. PT REFUSING REQUESTS TO STOP.
--- NOTE | 2019-08-08 21:35 | NUR ---
PT OUTSIDE SMOKING. REFUSING TO RETURN TO ED.
== END 2019-08-08 21:39 | disposition left against medical advice (07) ==
LOC: ED 21:15
DX: F20.9 Schizophrenia, unspecified (principal); F10.120 Alcohol abuse with intoxication, uncomplicated; F17.200 Nicotine dependence, unspecified, uncomplicated; J44.9 Chronic obstructive pulmonary disease, unspecified; F29 Unspecified psychosis not due to a substance or known physiological condition; F43.10 Post-traumatic stress disorder, unspecified; L40.9 Psoriasis, unspecified; M51.36 Other intervertebral disc degeneration, lumbar region; Z86.19 Personal history of other infectious and parasitic diseases; Z72.9 Problem related to lifestyle, unspecified; Z91.14 Patient's other noncompliance with medication regimen; Z75.9 Unspecified problem related to medical facilities and other health care; Y90.9 Presence of alcohol in blood, level not specified
CPT/HCPCS: 99283

== ENCOUNTER 2019-08-17 17:46 | Emergency (ER) | payer MEDICAID ==
[~2019-08-17] VITALS: Ht 175.3 cm; Wt 81.0 kg
[2019-08-17 17:59] VITALS: BP 116/78
--- NOTE | 2019-08-17 18:02 | NUR ---
pt to ed biba. seizure after trying not to drink x12 days. 4-5 pints/day. drank 1.5 24 oz beers after sz . sts hx etoh abuse, seizures. a&ox4. not cooperating w/ staff, security at bedside. c/o head/neck pain, refused c collar. vss. pupils dilated, 5 and sluggish. denies drug use. ARVIZU, 5/5 strength. call savage in reach, side rails up, fall precuations. ermc at bedside for eval. as
[2019-08-17 18:41] LABS: BASOPHILS # (AUTO) 0.03 x10^3/uL (0-0.1); BASOPHILS % (AUTO) 0 % (0-1); EOSINOPHILS # (AUTO) 0.21 x10^3/uL (0-0.4); EOSINOPHILS % (AUTO) 2 % (1-7); LYMPHOCYTES # (AUTO) 1.98 x10^3/uL (1-3.4); LYMPHOCYTES % (AUTO) 22 % (22-44); MD NO; MEAN CORPUSCULAR HEMOGLOBIN 29.5 pg (27.5-34.5); MEAN CORPUSCULAR HGB CONC 32.5 g/dL (33.2-36.2); MEAN CORPUSCULAR VOLUME 90.8 fL (81-97); MEAN PLATELET VOLUME 8.1 fL (7.4-10.4); MONOCYTES # (AUTO) 0.57 x10^3/uL (0.2-0.8); MONOCYTES % (AUTO) 6 % (2-9); NEUTROPHILS # (AUTO) 6.32 x10^3/uL (1.8-6.8); NEUTROPHILS % (AUTO) 69 % (42-75); PLATELET COUNT 288 x10^3/uL (130-400); RED CELL DISTRIBUTION WIDTH 16.3 % (9.4-14.8)
[2019-08-17 18:54] LABS: ALANINE AMINOTRANSFERASE 24 U/L (12-78); ALBUMIN 3.9 g/dL (3.4-5.0); ANION GAP 12 mmol/L (5-15); CALCIUM 8.4 mg/dL (8.5-10.1); CHLORIDE 109 mmol/L (98-107); CREATININE 0.87 mg/dL (0.7-1.3); SALICYLATE LEVEL 1.8 mg/dL (2.8-20.0)
[2019-08-17 18:56] LABS: ALKALINE PHOSPHATASE 105 U/L (45-117); BILIRUBIN,TOTAL 0.2 mg/dL (0.2-1.0); TOTAL PROTEIN 8.4 g/dL (6.4-8.2)
--- NOTE | 2019-08-17 19:25 | NUR ---
head/neck scan clear, awaiting lab resutls. vss. asking for food. as
== END 2019-08-17 20:12 ==
LOC: ED 19:45
DX: G40.319 Generalized idiopathic epilepsy and epileptic syndromes, intractable, without status epilepticus (principal); R55 Syncope and collapse; M54.2 Cervicalgia
CPT/HCPCS: 36415; 70450; 72125; 80053; 80307; 82140; 83605; 85025; 93005; 99284

== ENCOUNTER 2019-08-29 18:05 | Emergency (ER) | payer MEDICAID ==
[~2019-08-29] VITALS: Ht 175.3 cm; Wt 81.0 kg
[2019-08-29 18:48] VITALS: BP 114/74
--- NOTE | 2019-08-29 20:15 | NUR ---
pt up and trying to leave, encouraged to wait a bit longer, back in chair at this time
--- NOTE | 2019-08-29 20:52 | NUR ---
PT ELOPED OUT AMBULANCE BAY WITH STEADY GAIT
== END 2019-08-29 20:54 | disposition left against medical advice (07) ==
LOC: ED 18:50
DX: F10.129 Alcohol abuse with intoxication, unspecified (principal); J44.0 Chronic obstructive pulmonary disease with (acute) lower respiratory infection; Y90.9 Presence of alcohol in blood, level not specified
CPT/HCPCS: 99283

== ENCOUNTER 2019-09-26 20:15 | Emergency (ER) | payer MEDICAID ==
[~2019-09-26] VITALS: Ht 180.3 cm; Wt 89.1 kg
[~2019-09-26 20:15] MED LIST changes: -TRAZ-137 PO; +TRAZ-175 PO
--- NOTE | 2019-09-26 20:24 | NUR ---
BIB [facility] AFTER MECHANICAL GLF. +ETOH. PT HAS LACERATION TO BACK OF HEAD. PT CONNECTED TO MONITORING. CALL LIGHT IN REACH. AWAITING ORDERS AT THIS TIME.
--- NOTE | 2019-09-26 20:54 | NUR ---
THIS NURSE WAS CALLED TO PT ROOM. PT HAD BEEN FOUND ON FLOOR. PT ASSESSED AND MOVING ALL EXTREMITIES APROPRIATELY. NEW LACERATION NOTICED OVER LEFT EYE. PT ASSISTED BACK TO BED AND RECONNECTED TO MONITORING. A COUPLE MINUTES LATER THIS NURSE WAS CALLED TO PT ROOM TO FIND PT ON THE FLOOR AGAIN. PT ASSESSED AND MOVING ALL EXTREMITIES APPROPRIATELY. PT MATRESS PLACED ON FLOOR FOR SAFETY. PT RESTING COMFORTABLY ON GURNEY. CONNECTED TO MONITORING. SITTER AT BEDSIDE FOR SAFETY. MD NOTIFIED. CHARGE/PHLEBOTOMIST NOTIFIED.
[2019-09-26 20:55] LABS: BASOPHILS # (AUTO) 0.06 x10^3/uL (0-0.1); BASOPHILS % (AUTO) 1 % (0-1); EOSINOPHILS # (AUTO) 0.26 x10^3/uL (0-0.4); EOSINOPHILS % (AUTO) 3 % (1-7); LYMPHOCYTES # (AUTO) 2.34 x10^3/uL (1-3.4); LYMPHOCYTES % (AUTO) 26 % (22-44); MD NO; MEAN CORPUSCULAR HEMOGLOBIN 29.9 pg (27.5-34.5); MEAN CORPUSCULAR HGB CONC 32.9 g/dL (33.2-36.2); MEAN PLATELET VOLUME 8.4 fL (7.4-10.4); MONOCYTES # (AUTO) 0.87 x10^3/uL (0.2-0.8); MONOCYTES % (AUTO) 10 % (2-9); NEUTROPHILS # (AUTO) 5.36 x10^3/uL (1.8-6.8); NEUTROPHILS % (AUTO) 60 % (42-75); PLATELET COUNT 222 x10^3/uL (130-400); RED BLOOD COUNT 4.72 x10^6/uL (4.38-5.82); RED CELL DISTRIBUTION WIDTH 15.1 % (9.4-14.8)
--- NOTE | 2019-09-26 21:00 | NUR ---
SITTER TO ROOM FOR SAFETY
[2019-09-26 21:06] LABS: ALBUMIN 3.4 g/dL (3.4-5.0); ANION GAP 5 mmol/L (5-15); CALCIUM 8.3 mg/dL (8.5-10.1); CHLORIDE 107 mmol/L (98-107); CREATININE 1.09 mg/dL (0.7-1.3)
--- NOTE | 2019-09-26 21:06 | NUR ---
PT PLACED BACK ON [facility] FOR CT. CONTROL TOWER OPERATOR WENT WITH PT TO CT FOR SAFETY.
[2019-09-26 21:16] LABS: ALANINE AMINOTRANSFERASE 89 U/L (12-78); ALKALINE PHOSPHATASE 73 U/L (45-117); BILIRUBIN,TOTAL 0.1 mg/dL (0.2-1.0); TOTAL PROTEIN 7.7 g/dL (6.4-8.2)
[2019-09-26] MEDS ORDERED: LIDOCAINE 1%-EPI 1:100K, 20ML ONE (22:12)
--- NOTE | 2019-09-26 22:23 | NUR ---
PT RESTING ON MATRESS ON FLOOR AFTER RETURNING FROM CT. PT IN GOWN AND WARM BLANKET PROVIDED. PT MTF UNTIL SOBER ENOUGH FOR SUTURES. PT IN DIRECT SIGHT OF SITTER FOR SAFETY. LIDO PULLED FOR PROVIDER ADMIN.
[2019-09-26] MEDS ORDERED: LIDOCAINE 1%-EPI 1:100K, 20ML SQ ONE (22:30)
--- NOTE | 2019-09-26 23:52 | NUR ---
PT SITTING ON MATTRESS EATING SNACK. SITTER AT BEDSIDE.
--- NOTE | 2019-09-27 00:10 | NUR ---
REPORT GIVEN TO SAMUEL WOO
--- NOTE | 2019-09-27 00:19 | NUR ---
RPT RECEIVED FROM CHILO DUMAS. ASSUMED CARE OF PT.
--- NOTE | 2019-09-27 01:22 | NUR ---
PT UP AND MOVING AROUND ROOM FOR PAST 30 MINS STATING HE IS READY TO LEAVE. PT A&O 4.
[2019-09-27 01:25] VITALS: BP 141/80
== END 2019-09-27 01:26 | disposition home or self-care (01) ==
LOC: ED 09-27 00:07
DX: S01.01XA Laceration without foreign body of scalp, initial encounter (principal); F10.120 Alcohol abuse with intoxication, uncomplicated; F17.200 Nicotine dependence, unspecified, uncomplicated; J44.9 Chronic obstructive pulmonary disease, unspecified; G40.909 Epilepsy, unspecified, not intractable, without status epilepticus; Y90.0 Blood alcohol level of less than 20 mg/100 ml; W01.0XXA Fall on same level from slipping, tripping and stumbling without subsequent striking against object, initial encounter; Y93.89 Activity, other specified; Y92.410 Unspecified street and highway as the place of occurrence of the external cause; Y99.8 Other external cause status
CPT/HCPCS: 36415; 70450; 70486; 72125; 80053; 80307; 85025; 99285

== ENCOUNTER 2019-09-27 08:23 | Emergency (ER) | payer MEDICAID ==
[~2019-09-27] VITALS: Ht 172.7 cm; Wt 90.0 kg
--- NOTE | 2019-09-27 08:47 | NUR ---
PT. ARRIVES BY [facility] WITH C/O PUBLIC INTOXICATION. PT. IS UNABLE TO AMBULATE WELL. PT. HAS A STRONG LOOSE COUGH, A LACERATION TO THE LEFT EYE AND TOP OF HIS HEAD AND LEFT KNEE PAIN. PT.'S BGL IS 88. PT. IS A & O X 4 WITH A GCS OF 15. LUNGS HAVE COURSE RHONCHI THROUGHOUT. PT. IS NON-COMPLIANT WITH COVERING HIS COUGH SO A MASK WAS PLACED OVER HIS MOUTH. PT. WAS PLACED ON 2 LITERS 02 TO MAINTAIN HIS SPO2 GREATER THAN 94%. PT.'S CXR WAS DONE. PT. HAS THE BP CUFF AND PULSE OX IN PLACE. PT. WAS GIVEN A URINAL TO VOID. PT. WAS GIVEN PO FLUID IN A CUP. DR. RUIZ ENTERED THE ROOM THE PT. FLIPPED HER OFF. RN ESTABLISHED RULES OF RESPECT WITH THE PT. AND INFORMED HIM VULGARITY IS NOT ACCEPTABLE. PT. WAS INSTRUCTED THAT HE WILL BE TREATED WITH RESPECT AND THE SAME IS EXPECTED. PT.'S ABD. IS SOFT AND NON-TENDER WITH BS + X 4 QUADS. PT. HAS PSORIASIS PRESENT ON HIS LOWER EXTREMITIES. PT. WAS AMBULATORY TO ROOM 17 UPON ARRIVAL.
[2019-09-27] MEDS ORDERED: SODIUM CHLORIDE FLUSH 10ML SYR IVF ONE (09:00)
[2019-09-27 09:01] VITALS: BP 94/64
--- NOTE | 2019-09-27 10:10 | NUR ---
PT. IS WONDERING THE HALLS YELLING PROFANITIES AT THE STAFF. PT. WAS ASKED TO RETURN TO HIS ROOM AND HE CALLED THE RN A "BITCH". PT. WAS INSTRUCTED IF HIS BEHAVIOR CONTINUES SECURITY WOULD BE NOTIFIED.
--- NOTE | 2019-09-27 10:24 | NUR ---
PT.'S DRESSED. DISCHARGE INSTRUCTIONS GIVEN. PT. WAS ESCORTED OUT BY SECURITY. PT. IS REFUSING TX.
== END 2019-09-27 10:30 | disposition home or self-care (01) ==
LOC: ED 09:24
DX: J20.8 Acute bronchitis due to other specified organisms (principal); F10.20 Alcohol dependence, uncomplicated; Y90.0 Blood alcohol level of less than 20 mg/100 ml; J44.9 Chronic obstructive pulmonary disease, unspecified; F17.200 Nicotine dependence, unspecified, uncomplicated; G40.909 Epilepsy, unspecified, not intractable, without status epilepticus; Z86.19 Personal history of other infectious and parasitic diseases; Z72.9 Problem related to lifestyle, unspecified
CPT/HCPCS: 71045; 82962; 99283

== ENCOUNTER 2019-10-02 12:42 | Emergency (ER) | payer MEDICAID ==
[~2019-10-02] VITALS: Ht 172.7 cm; Wt 98.7 kg
--- NOTE | 2019-10-02 12:56 | NUR ---
PT SAYS "I WILL BREAK YOUR TEETH AND SHOVE THEM DOWN YOUR THROAT". ALSO STATED "HE WOULD BEAT MY ASS IN A DARK ALLEY".
--- NOTE | 2019-10-02 13:05 | NUR ---
PT IS REFUSING TO ANSWER QUESTIONS. PT IS REFUSING ALL INTERVENTIONS. WONT LET ME CONDUCT AN ASSESSMENT OR TAKE VITALS.
--- NOTE | 2019-10-02 13:25 | NUR ---
PT RIPPED OFF PULSE OX. A NEW ONE HAS BEEN PLACED ON IT
[2019-10-02 14:30] LABS: ALBUMIN 3.1 g/dL (3.4-5.0); ANION GAP 8 mmol/L (5-15); CALCIUM 7.9 mg/dL (8.5-10.1); CHLORIDE 114 mmol/L (98-107); CREATININE 0.96 mg/dL (0.7-1.3)
--- NOTE | 2019-10-02 15:52 | NUR ---
PT RIPPED OUT HIS IV. CONTINUED TO THREATEN ME BY SAYING HE WOULD PUNCH ME AND HE CALLED ME "MOTHER FUCKER".
--- NOTE | 2019-10-02 16:18 | NUR ---
PT SAID "GET ME A JONAWHICH MOTHER FUCKER". WHEN I ASKED HIM TO SIT BACK DOWN HE DUMPED A FULL URINAL ALL OVER THE GURNEY AND WALKED OUT. HE AMBULATED UNDER HIS OWN POWER WITH A STEADY GAIT AND DID NOT USE THE LOPEZ OR HAND RAILS FOR SUPPORT.
== END 2019-10-02 16:21 | disposition left against medical advice (07) ==
LOC: ED 16:15
DX: F10.229 Alcohol dependence with intoxication, unspecified (principal); R58 Hemorrhage, not elsewhere classified; Y90.9 Presence of alcohol in blood, level not specified
CPT/HCPCS: 36415; 80048; 80307; 82040; 99283

== ENCOUNTER 2019-10-09 13:36 | Emergency (ER) | payer MEDICAID ==
[~2019-10-09] VITALS: Ht 177.8 cm; Wt 85.0 kg
--- NOTE | 2019-10-09 14:15 | NUR ---
MD RYAN. NO LEGAL HOLD.
--- NOTE | 2019-10-09 14:30 | NUR ---
TO CT VIA [facility]
--- NOTE | 2019-10-09 15:10 | NUR ---
PT FOUND IN ROOM SMOKING, BELONGINGS TAKEN OUT OF ROOM, UNSTEADY GAIT BACK TO BED, GRAPHIC DESIGN SPECIALIST WATCHING.
--- NOTE | 2019-10-09 16:03 | NUR ---
pt laying in bed, respirations even and unlabored, lights of to promote rest, eyes closed, remains in sight of prepared foods team leader.
--- NOTE | 2019-10-09 16:27 | NUR ---
pt condition unchanged, medical coding technician still watching.
--- NOTE | 2019-10-09 17:18 | NUR ---
attempted breathalizer, pt could not blow long enough to make it work.
--- NOTE | 2019-10-09 17:44 | NUR ---
pt back to sleeping
--- NOTE | 2019-10-09 18:24 | NUR ---
pt laying in bed, respirations even and unlabored, food at bedside.
--- NOTE | 2019-10-09 18:49 | NUR ---
report given to jayme cano.
--- NOTE | 2019-10-09 21:00 | NUR ---
Received report from joey that pt became nauseated and vomited in the room. Pt now sleeping again.
--- NOTE | 2019-10-09 22:16 | NUR ---
Pt reassessed. Pt states he doesn't "feel well" stating "everything" hurts and the pain started "just now". Pt offered Tylenol for pain and stated "I don't want that". VS obtained. Pt is at 89% room air currently and reports Hx of COPD stating he uses O2 "when I can get some".
--- NOTE | 2019-10-09 23:03 | NUR ---
Pt informed he was being discharged. Pt got dressed and left without discharge papers.
[2019-10-09 23:06] VITALS: BP 109/63
== END 2019-10-09 23:09 | disposition home or self-care (01) ==
LOC: ED 23:00
DX: F10.120 Alcohol abuse with intoxication, uncomplicated (principal); F17.200 Nicotine dependence, unspecified, uncomplicated; J44.9 Chronic obstructive pulmonary disease, unspecified; R51 Headache; G40.909 Epilepsy, unspecified, not intractable, without status epilepticus; Y90.0 Blood alcohol level of less than 20 mg/100 ml
CPT/HCPCS: 70450; 99284

== ENCOUNTER 2020-05-05 15:19 | Inpatient (IN) | payer MEDICAID ==
[~2020-05-05] VITALS: Ht 172.7 cm; Wt 106.1 kg
--- NOTE | 2020-05-05 15:34 | NUR ---
BIB [facility] FOR C/O SOB AND DIZZINESS. PT WAS FOUND SITTING ON SIDEWALK. WAS DX W/ PNA RECENTLY AND TREATED AT [facility]. PT STATES CURRENTLY WITHDRAWING FROM ETOH AND BENZOS. LAST TOOK CLONAZEPAM 3 DAYS AGO AND ETOH A FEW HRS AGO. DRINKS 3/5 PINT VODKA DAILY. HX COPD AND IS DRINKER. HR 125, BP 134/76. EKG CMPLETED. PT RESTING ON GURNEY. KASANDRA. ROMEO BIRD AT BEDSIDE FOR EVAL.
[2020-05-05] MEDS ORDERED: ALBUTEROL SULFATE 2.5 MG/3 ML ONE (15:59)
[2020-05-05] MEDS ORDERED: THIAMINE 100MG TABLET ONE (15:59)
[2020-05-05] MEDS ORDERED: ASPIRIN 81 MG TABLET CHEW ONE (15:59)
[2020-05-05] MEDS ORDERED: LORazepam 1MG TABLET ONE (15:59)
[2020-05-05] MEDS ORDERED: SODIUM CHLORIDE FLUSH 10ML SYR IVF ONE (16:00)
[2020-05-05] MEDS ORDERED: LORazepam 1MG TABLET PO ONE (16:00)
[2020-05-05] MEDS ORDERED: THIAMINE 100MG TABLET PO ONE (16:00)
[2020-05-05] MEDS ORDERED: ASPIRIN 81 MG TABLET CHEW PO ONE (16:00)
[2020-05-05] MEDS ORDERED: ALBUTEROL/IPRATROPIUM 2.5MG/0.5MG, 3 ML NPPB SCH (16:00)
[2020-05-05] MEDS ORDERED: ALBUTEROL/IPRATROPIUM 2.5MG/0.5MG, 3 ML ONE (16:04)
[2020-05-05 16:10] LABS: BASOPHILS # (AUTO) 0.02 x10^3/uL (0-0.1); BASOPHILS % (AUTO) 0 % (0-1); EOSINOPHILS % (AUTO) 0 % (1-7); LYMPHOCYTES # (AUTO) 0.78 x10^3/uL (1-3.4); LYMPHOCYTES % (AUTO) 6 % (22-44); MD NO; MEAN CORPUSCULAR HEMOGLOBIN 26.4 pg (27.5-34.5); MEAN CORPUSCULAR HGB CONC 31.9 g/dL (33.2-36.2); MEAN PLATELET VOLUME 7.9 fL (7.4-10.4); MONOCYTES # (AUTO) 0.69 x10^3/uL (0.2-0.8); MONOCYTES % (AUTO) 5 % (2-9); NEUTROPHILS # (AUTO) 11.37 x10^3/uL (1.8-6.8); NEUTROPHILS % (AUTO) 88 % (42-75); PLATELET COUNT 324 x10^3/uL (130-400); RED BLOOD COUNT 5.24 x10^6/uL (4.38-5.82); RED CELL DISTRIBUTION WIDTH 18.1 % (9.4-14.8)
[2020-05-05 16:16] LABS: ALANINE AMINOTRANSFERASE 33 U/L (12-78); ANION GAP 14 mmol/L (5-15); CALCIUM 8.7 mg/dL (8.5-10.1); CHLORIDE 98 mmol/L (98-107)
[2020-05-05 16:21] LABS: ALKALINE PHOSPHATASE 95 U/L (45-117); BILIRUBIN,TOTAL 0.3 mg/dL (0.2-1.0); TOTAL PROTEIN 8.3 g/dL (6.4-8.2); TROPONIN I < 0.015 ng/mL (0.000-0.045)
--- NOTE | 2020-05-05 16:26 | NUR ---
PT SLEEPING ON GURNEY. NADN. HR NOTED TO BE 121. ROMEO BIRD NOTIFIED. WILL CONTINUE TO MONITOR.
--- NOTE | 2020-05-05 17:11 | NUR ---
PT HR REMAINS ELEVATED AT 119. [facility] NOTIFIED. NEW ORDERS FOR 500 ML NS BOLUS ORDERED.
[2020-05-05] MEDS ORDERED: SODIUM CHLORIDE 0.9% 1,000ML IVBOLUS ONE (17:30)
--- NOTE | 2020-05-05 18:51 | NUR ---
PT RESTING ON DEBBIE. VSS. HR REMAINS AT 111-113
--- NOTE | 2020-05-05 18:58 | NUR ---
REPORT GIVEN TO RENATO ERVIN RN.
--- NOTE | 2020-05-05 20:59 | NUR ---
COVID swab collected and walked to lab.
[2020-05-05] MEDS ORDERED: POTASSIUM CHLORIDE 10 MEQ, MVI ADULT 10 ML, FOLIC ACID 1 MG, MAGNESIUM SULFATE 1 GM in ... IV SCH (23:41)
--- NOTE | 2020-05-05 23:44 | NUR ---
Report given to CHILO Arshad.
[2020-05-06] MEDS ORDERED: LORazepam 2 MG/ML, 1ML IV PRN ×3
[2020-05-06] MEDS ORDERED: AZITHROMYCIN 500 MG in SODIUM CHLORIDE 0.9% 250 ML IV ONE
[2020-05-06] MEDS ORDERED: FOLIC ACID 1 MG TABLET PO ONE
[2020-05-06 00:27] VITALS: BP 117/78
--- NOTE | 2020-05-06 00:30 | NUR ---
this tech transported pt
[2020-05-06] MEDS: LORazepam 2 MG/ML, 1ML IV PRN ×4 (00:54→12:31)
[2020-05-06] MEDS: CEFTRIAXONE PMX 2GM/50ML 50 ML IV SCH (01:00)
[2020-05-06] MEDS ORDERED: ALBUTEROL HFA 90 MCG/SPRAY INH PRN (03:30)
[2020-05-06 05:44] LABS: BASOPHILS # (AUTO) 0.05 x10^3/uL (0-0.1); BASOPHILS % (AUTO) 1 % (0-1); EOSINOPHILS # (AUTO) 0.29 x10^3/uL (0-0.4); EOSINOPHILS % (AUTO) 4 % (1-7); LYMPHOCYTES # (AUTO) 1.43 x10^3/uL (1-3.4); LYMPHOCYTES % (AUTO) 20 % (22-44); MD NO; MEAN CORPUSCULAR HEMOGLOBIN 26.6 pg (27.5-34.5); MEAN CORPUSCULAR HGB CONC 32.1 g/dL (33.2-36.2); MEAN PLATELET VOLUME 8.4 fL (7.4-10.4); MONOCYTES # (AUTO) 0.67 x10^3/uL (0.2-0.8); MONOCYTES % (AUTO) 9 % (2-9); NEUTROPHILS # (AUTO) 4.73 x10^3/uL (1.8-6.8); NEUTROPHILS % (AUTO) 66 % (42-75); PLATELET COUNT 248 x10^3/uL (130-400); RED BLOOD COUNT 4.61 x10^6/uL (4.38-5.82); RED CELL DISTRIBUTION WIDTH 17.5 % (9.4-14.8)
[2020-05-06 05:48] LABS: ANION GAP 4 mmol/L (5-15); CALCIUM 8.1 mg/dL (8.5-10.1); CHLORIDE 105 mmol/L (98-107); CREATININE 0.84 mg/dL (0.7-1.3)
[2020-05-06 05:49] LABS: ALBUMIN 3.1 g/dL (3.4-5.0)
[2020-05-06] MEDS: AZITHROMYCIN 500 MG TABLET PO SCH (08:24)
[2020-05-06 08:36] VITALS: BP 109/74
[2020-05-06] MEDS ORDERED: AZITHROMYCIN 250 MG TABLET PO SCH (09:00)
[2020-05-06] MEDS ORDERED: MULTIVITAMINS/MINERALS TABLET PO SCH (09:00)
[2020-05-06] MEDS: FLUTICASONE/VILANTEROL 200-25MCG/INH INH SCH (09:36)
[2020-05-06] MEDS: THIAMINE 100MG TABLET PO SCH (09:36)
[2020-05-06] MEDS: MULTIVITAMIN 1 TABLET PO SCH (09:36)
[2020-05-06] MEDS: FOLIC ACID 1 MG TABLET PO SCH (09:36)
[2020-05-06] MEDS: ENOXAPARIN 40 MG/0.4 ML SQ SCH (09:36)
[2020-05-06] MEDS: GUAIFENESIN 200 MG TABLET PO SCH ×3 (09:37→20:24)
[2020-05-06] MEDS: ALBUTEROL-IPRATROPIUM MDI INH INH SCH ×3 (12:31→20:35)
[2020-05-06 13:38] VITALS: BP 128/77
[2020-05-06] MEDS ORDERED: NICOTINE 14MG/24 HR PATCH.TD24 ONE (14:11)
[2020-05-06] MEDS ORDERED: NICOTINE 14MG/24 HR PATCH.TD24 TD SCH (14:30)
[2020-05-06] MEDS ORDERED: CHLORDIAZEPOXIDE 25 MG CAPSULE ONE (14:48)
[2020-05-06] MEDS: CHLORDIAZEPOXIDE 25 MG CAPSULE PO PRN (14:55)
[2020-05-06] MEDS ORDERED: PRAZOSIN 2 MG CAPSULE PO PRN (16:00)
[2020-05-06] MEDS: NICOTINE 21 MG/24 HR PATCH.TD24 TD SCH (17:00)
[2020-05-06] MEDS ORDERED: TOPIRAMATE 100 MG TABLET ONE (19:57)
[2020-05-06 20:10] VITALS: BP 132/93
[2020-05-06] MEDS: OLANZAPINE 5 MG TABLET PO SCH (20:24)
[2020-05-06] MEDS: TOPIRAMATE 25 MG TABLET PO SCH (20:25)
[2020-05-06] MEDS ORDERED: TRAZODONE 50MG TABLET ONE (21:25)
[2020-05-06] MEDS: ALUMINUM/MAG/SIMETHICONE 30 ML UDC PO PRN (21:29)
[2020-05-06] MEDS: TRAZODONE 100MG TABLET PO PRN (21:30)
[2020-05-07] MEDS: CEFTRIAXONE PMX 2GM/50ML 50 ML IV SCH
[2020-05-07 01:49] VITALS: BP 109/89
[2020-05-07] MEDS: CHLORDIAZEPOXIDE 25 MG CAPSULE PO PRN ×3 (03:23→21:01)
[2020-05-07 05:11] LABS: ALANINE AMINOTRANSFERASE 24 U/L (12-78); ALBUMIN 3.3 g/dL (3.4-5.0); ANION GAP 4 mmol/L (5-15); CALCIUM 8.8 mg/dL (8.5-10.1); CHLORIDE 110 mmol/L (98-107); CREATININE 0.92 mg/dL (0.7-1.3)
[2020-05-07 05:13] LABS: ALKALINE PHOSPHATASE 75 U/L (45-117); BILIRUBIN,TOTAL 0.2 mg/dL (0.2-1.0); TOTAL PROTEIN 6.9 g/dL (6.4-8.2)
[2020-05-07] MEDS: ALBUTEROL-IPRATROPIUM MDI INH INH SCH ×4 (06:00→21:01)
[2020-05-07] MEDS: GUAIFENESIN 200 MG TABLET PO SCH ×4 (06:00→21:02)
[2020-05-07 06:58] VITALS: BP 108/74
[2020-05-07] MEDS: NICOTINE 21 MG/24 HR PATCH.TD24 TD SCH (08:27)
[2020-05-07] MEDS: MULTIVITAMIN 1 TABLET PO SCH (08:28)
[2020-05-07] MEDS: FOLIC ACID 1 MG TABLET PO SCH (08:28)
[2020-05-07] MEDS: THIAMINE 100MG TABLET PO SCH (08:28)
[2020-05-07] MEDS: AZITHROMYCIN 500 MG TABLET PO SCH (08:28)
[2020-05-07] MEDS: TOPIRAMATE 25 MG TABLET PO SCH ×2 (08:28→21:01)
[2020-05-07] MEDS: ENOXAPARIN 40 MG/0.4 ML SQ SCH (08:29)
[2020-05-07] MEDS: LORazepam 2 MG/ML, 1ML IV PRN ×3 (08:29→18:14)
[2020-05-07] MEDS: FLUTICASONE/VILANTEROL 200-25MCG/INH INH SCH (09:07)
[2020-05-07] MEDS ORDERED: TEMA15CA PO (09:29)
[2020-05-07] MEDS ORDERED: ALBU8.5H8 INH (09:29)
[2020-05-07 12:06] VITALS: BP 128/81
[2020-05-07] MEDS: ALUMINUM/MAG/SIMETHICONE 30 ML UDC PO PRN ×2 (13:08→21:51)
[2020-05-07] MEDS ORDERED: IBUPROFEN 200 MG TABLET PO PRN (14:00)
[2020-05-07] MEDS: ACETAMINOPHEN 325 MG TABLET PO SCH ×3 (14:10→22:00)
[2020-05-07 16:34] VITALS: BP 144/84
[2020-05-07 19:29] VITALS: BP 125/69
[2020-05-07] MEDS: OLANZAPINE 5 MG TABLET PO SCH (21:01)
[2020-05-07] MEDS: TRAZODONE 100MG TABLET PO PRN (21:02)
[2020-05-08 00:58] VITALS: BP 106/68
[2020-05-08] MEDS: ACETAMINOPHEN 325 MG TABLET PO SCH ×4 (01:08→14:00)
[2020-05-08] MEDS: LORazepam 2 MG/ML, 1ML IV PRN ×2 (03:58→11:54)
[2020-05-08] MEDS: GUAIFENESIN 200 MG TABLET PO SCH ×2 (05:19→11:10)
[2020-05-08] MEDS: ALBUTEROL-IPRATROPIUM MDI INH INH SCH ×2 (05:19→10:42)
[2020-05-08 06:53] VITALS: BP 127/68
[2020-05-08] MEDS: THIAMINE 100MG TABLET PO SCH (08:03)
[2020-05-08] MEDS: AZITHROMYCIN 500 MG TABLET PO SCH (08:03)
[2020-05-08] MEDS: FOLIC ACID 1 MG TABLET PO SCH (08:03)
[2020-05-08] MEDS: TOPIRAMATE 25 MG TABLET PO SCH (08:03)
[2020-05-08] MEDS: NICOTINE 21 MG/24 HR PATCH.TD24 TD SCH (08:04)
[2020-05-08] MEDS: ENOXAPARIN 40 MG/0.4 ML SQ SCH (08:04)
[2020-05-08] MEDS: MULTIVITAMIN 1 TABLET PO SCH (08:05)
[2020-05-08] MEDS: CHLORDIAZEPOXIDE 25 MG CAPSULE PO PRN (08:09)
[2020-05-08] MEDS: FLUTICASONE/VILANTEROL 200-25MCG/INH INH SCH (08:11)
[2020-05-08] MEDS ORDERED: PRED20TA PO (12:22)
[2020-05-08] MEDS ORDERED: AZIT250T PO (12:22)
[2020-05-08] MEDS ORDERED: CHLORDIAZEPOXIDE 25 MG CAPSULE PO ONE (12:30)
[2020-05-08 12:46] VITALS: BP 162/83
== END 2020-05-08 14:46 | disposition home or self-care (01) | DRG 140 ==
LOC: ED 17:37 → EDIP 19:01 → 4EST 05-06 00:19 → 3N 05-07 16:30
PROVIDERS: ADMIT Internal Medicine; ATTEND Family Medicine
DX: J44.0 Chronic obstructive pulmonary disease with (acute) lower respiratory infection (principal); J20.9 Acute bronchitis, unspecified; L40.9 Psoriasis, unspecified; J44.1 Chronic obstructive pulmonary disease with (acute) exacerbation; F25.9 Schizoaffective disorder, unspecified; Z20.828 Contact with and (suspected) exposure to other viral communicable diseases; F17.210 Nicotine dependence, cigarettes, uncomplicated; F10.129 Alcohol abuse with intoxication, unspecified; E87.2 Acidosis; Z91.19 Patient's noncompliance with other medical treatment and regimen; Z81.8 Family history of other mental and behavioral disorders; Z59.0 Homelessness; Z91.5 Personal history of self-harm
CPT/HCPCS: 36415; 71045; 80048; 80053; 80307; 82040; 83605; 83735; 84100; 84145; 84484; 85025; 87040; 87635; 93005; 94640; 99285; G0378; J0456; J0696; J1650; J3475; J3480; J7042; J2060; J7030; J7050; J7512

== ENCOUNTER 2020-11-11 14:20 | Inpatient (IN) | payer MEDICAID ==
[~2020-11-11] VITALS: Ht 172.7 cm; Wt 97.7 kg
[~2020-11-11 14:20] MED LIST changes: +ALBU8.5H8 INH; +AZIT250T PO; -ESCI20TA PO; +ESCI20TA8 PO; -FOLI-17 PO; +FOLI1TAB32 PO; +MULT-482 PO; -MULT-750 PO; +PRED20TA PO; -RISP4TAB2 PO; +RISP4TAB66 PO
--- NOTE | 2020-11-11 14:32 | NUR ---
PT BIBA. PER EMS PT WAS AT [facility] TODAY FOR DETOX BUT STARTED VOMITTING. PER EMS [facility] STATED THAT THE VOMIT LOOKED LIKE COFFEE GROUND EMESIS. PT DRANK 1 PINT OF VODKA AT 0400 THIS MORNING AND DID CRYSTAL METH. PT NORMALLY DRINKS 3 PINTS OF VODKA DAILY. PER EMS [facility] WILL TAKE PT BACK ONCE HE IS MEDICALLY CLEARED. PT RESTING IN [facility], EKG DONE, MONITORING IN PLACE, PT STATES HE HAS NO NAUSEA AT THIS TIME, WCTM.
[2020-11-11] MEDS ORDERED: SODIUM CHLORIDE 0.9% 1,000ML IVBOLUS ONE (15:00)
[2020-11-11] MEDS ORDERED: SODIUM CHLORIDE FLUSH 10ML SYR IVF ONE (15:00)
[2020-11-11 15:15] LABS: BASOPHILS % (AUTO) 0 % (0-1); EOSINOPHILS % (AUTO) 0 % (1-7); LYMPHOCYTES % (AUTO) 4 % (22-44); MEAN CORPUSCULAR HEMOGLOBIN 28.1 pg (27.5-34.5); MEAN CORPUSCULAR HGB CONC 33.5 g/dL (33.2-36.2); MEAN PLATELET VOLUME 8.7 fL (7.4-10.4); MONOCYTES % (AUTO) 8 % (2-9); NEUTROPHILS % (AUTO) 88 % (42-75); PLATELET COUNT 229 x10^3/uL (130-400); RED BLOOD COUNT 4.96 x10^6/uL (4.38-5.82)
--- NOTE | 2020-11-11 15:17 | NUR ---
TASK RN: PIV FLUIDS STARTED. VS UPDATED. PT 91% RA, PLACED ON 2L NC FOR SAFETY. RESP EVEN AND UNLABORED, KASANDRA.
[2020-11-11 15:23] LABS: ALANINE AMINOTRANSFERASE 58 U/L (12-78); ALBUMIN 3.8 g/dL (3.4-5.0); ANION GAP 14 mmol/L (5-15); CALCIUM 8.7 mg/dL (8.5-10.1); CHLORIDE 96 mmol/L (98-107); CREATININE 1.44 mg/dL (0.7-1.3)
[2020-11-11 15:25] LABS: ALKALINE PHOSPHATASE 74 U/L (45-117); BILIRUBIN,TOTAL 0.5 mg/dL (0.2-1.0); TOTAL PROTEIN 7.4 g/dL (6.4-8.2)
[2020-11-11 15:45] LABS: INTERNATIONAL NORMALIZED RATIO 1.04 (0.93-1.1); PROTHROMBIN TIME 11.1 Seconds (9.6-11.5)
[2020-11-11 15:52] LABS: MD SCAN
[2020-11-11] MEDS ORDERED: BISACODYL 10 MG SUPP PR PRN (17:30)
[2020-11-11] MEDS ORDERED: ALBUTEROL HFA 90 MCG/SPRAY INH PRN (17:30)
[2020-11-11] MEDS ORDERED: POLYETHYLENE GLYCOL 17 GM PACKET PO PRN (17:30)
[2020-11-11] MEDS ORDERED: LORazepam 0.5MG TABLET PO PRN (17:30)
[2020-11-11] MEDS ORDERED: LORazepam 2 MG/ML, 1ML IV PRN ×3 (17:30)
[2020-11-11] MEDS ORDERED: ONDANSETRON 2MG/ML, 2ML IVPush PRN (17:30)
[2020-11-11] MEDS ORDERED: ONDANSETRON ODT 4 MG PO PRN (17:30)
[2020-11-11] MEDS ORDERED: LORazepam 1MG TABLET PO PRN ×2 (17:30)
[2020-11-11] MEDS ORDERED: DOCUSATE 100 MG CAPSULE PO PRN (17:30)
[2020-11-11] MEDS ORDERED: SODIUM CHLORIDE 0.9% 1,000 ML IV ONE (18:00)
[2020-11-11] MEDS ORDERED: NICOTINE 21 MG/24 HR PATCH.TD24 TD ONE (18:00)
[2020-11-11] MEDS ORDERED: SODIUM CHLORIDE FLUSH 10ML SYR IVF PRN (18:00)
[2020-11-11] MEDS: THIAMINE 200 MG, FOLIC ACID 1 MG in D5%-0.9% NACL 1,000 ML IV SCH (19:56)
[2020-11-11 20:47] VITALS: BP 116/68
[2020-11-11] MEDS: CHLORDIAZEPOXIDE 25 MG CAPSULE PO SCH ×2 (21:25→22:28)
[2020-11-11] MEDS: PANTOPRAZOLE 40MG TABLET PO SCH (21:26)
[2020-11-11] MEDS: OLANZAPINE 10 MG TABLET PO SCH (21:26)
[2020-11-11] MEDS: SODIUM CHLORIDE 0.9% 1,000 ML IV SCH (21:27)
[2020-11-12 01:49] VITALS: BP 112/72
[2020-11-12 04:00] LABS: MICROSCOPIC INDICATED
[2020-11-12 05:27] LABS: BASOPHILS % (AUTO) 0 % (0-1); EOSINOPHILS % (AUTO) 0 % (1-7); LYMPHOCYTES % (AUTO) 7 % (22-44); MEAN CORPUSCULAR HEMOGLOBIN 28.4 pg (27.5-34.5); MEAN CORPUSCULAR HGB CONC 33.4 g/dL (33.2-36.2); MEAN PLATELET VOLUME 9.1 fL (7.4-10.4); MONOCYTES % (AUTO) 9 % (2-9); NEUTROPHILS % (AUTO) 83 % (42-75); PLATELET COUNT 139 x10^3/uL (130-400); RED BLOOD COUNT 4.13 x10^6/uL (4.38-5.82); RED CELL DISTRIBUTION WIDTH 13.9 % (9.4-14.8)
[2020-11-12 05:37] LABS: ANION GAP 3 mmol/L (5-15); CALCIUM 8.2 mg/dL (8.5-10.1); CHLORIDE 105 mmol/L (98-107)
[2020-11-12 05:42] LABS: MD NO
[2020-11-12] MEDS: PANTOPRAZOLE 40MG TABLET PO SCH ×2 (05:43→15:21)
[2020-11-12] MEDS: CHLORDIAZEPOXIDE 25 MG CAPSULE PO SCH (05:43)
[2020-11-12 05:46] LABS: ALANINE AMINOTRANSFERASE 39 U/L (12-78); ALKALINE PHOSPHATASE 59 U/L (45-117); BILIRUBIN,TOTAL 0.6 mg/dL (0.2-1.0); CREATININE 0.83 mg/dL (0.7-1.3); TOTAL PROTEIN 5.9 g/dL (6.4-8.2)
[2020-11-12] MEDS: SODIUM CHLORIDE 0.9% 1,000 ML IV SCH ×2 (07:21→21:03)
[2020-11-12 08:15] VITALS: BP 108/71
[2020-11-12] MEDS ORDERED: POTASSIUM PHOSPHATE 30 MMOL in SODIUM CHLORIDE 0.9% 250 ML IV ONE (09:00)
[2020-11-12] MEDS ORDERED: POTASSIUM PHOSPHATE 30 MMOL in SODIUM CHLORIDE 0.9% 500 ML IV ONE (09:00)
[2020-11-12] MEDS: ESCITALOPRAM 10MG TABLET PO SCH (09:04)
[2020-11-12] MEDS: MULTIVITAMIN 1 TABLET PO SCH (09:04)
[2020-11-12] MEDS: FOLIC ACID 1 MG TABLET PO SCH (09:04)
[2020-11-12] MEDS: THIAMINE 100MG TABLET PO SCH (09:04)
[2020-11-12] MEDS: ACETAMINOPHEN 325 MG TABLET PO PRN ×2 (10:08→15:28)
[2020-11-12] MEDS ORDERED: TOPIRAMATE 100 MG TABLET PO SCH (11:00)
[2020-11-12 13:25] VITALS: BP 105/66
[2020-11-12] MEDS ORDERED: CHLORDIAZEPOXIDE 25 MG CAPSULE PO SCH (17:30)
[2020-11-12] MEDS ORDERED: CALCIUM CARBONATE 500 MG TAB.CHEW PO PRN (18:00)
[2020-11-12 19:57] VITALS: BP 101/66
[2020-11-12] MEDS: THIAMINE 200 MG, FOLIC ACID 1 MG in D5%-0.9% NACL 1,000 ML IV SCH (21:02)
[2020-11-12] MEDS: OLANZAPINE 10 MG TABLET PO SCH (21:02)
[2020-11-12] MEDS: TEMAZEPAM 15 MG CAPSULE PO PRN (21:10)
[2020-11-13] MEDS ORDERED: OXYcodone IR 5MG TABLET PO PRN
[2020-11-13 01:14] VITALS: BP 111/67
[2020-11-13] MEDS: SODIUM CHLORIDE 0.9% 1,000 ML IV SCH (05:30)
[2020-11-13 05:56] LABS: BASOPHILS % (AUTO) 0 % (0-1); EOSINOPHILS % (AUTO) 1 % (1-7); LYMPHOCYTES % (AUTO) 12 % (22-44); MEAN CORPUSCULAR HEMOGLOBIN 29.3 pg (27.5-34.5); MEAN CORPUSCULAR HGB CONC 34.7 g/dL (33.2-36.2); MONOCYTES % (AUTO) 8 % (2-9); NEUTROPHILS % (AUTO) 79 % (42-75); PLATELET COUNT 128 x10^3/uL (130-400); RED BLOOD COUNT 3.51 x10^6/uL (4.38-5.82); RED CELL DISTRIBUTION WIDTH 13.9 % (9.4-14.8)
[2020-11-13 05:58] LABS: ANION GAP 4 mmol/L (5-15); CHLORIDE 110 mmol/L (98-107)
[2020-11-13 06:00] LABS: CREATININE 0.72 mg/dL (0.7-1.3)
[2020-11-13 06:16] LABS: MD NO
[2020-11-13] MEDS: PANTOPRAZOLE 40MG TABLET PO SCH ×2 (06:27→15:42)
[2020-11-13] MEDS ORDERED: POTASSIUM PHOSPHATE 40 MEQ in SODIUM CHLORIDE 0.9% 500 ML IV ONE (06:30)
[2020-11-13] MEDS ORDERED: POTASSIUM PHOS 4.4 MEQ/ML IV ONE (06:30)
[2020-11-13 07:15] VITALS: BP 132/70
[2020-11-13 08:24] VITALS: BP 117/77
[2020-11-13] MEDS: ESCITALOPRAM 10MG TABLET PO SCH (09:24)
[2020-11-13] MEDS: MULTIVITAMIN 1 TABLET PO SCH (09:24)
[2020-11-13] MEDS: ACETAMINOPHEN 325 MG TABLET PO PRN ×3 (09:24→20:08)
[2020-11-13] MEDS: FOLIC ACID 1 MG TABLET PO SCH (09:24)
[2020-11-13] MEDS: THIAMINE 100MG TABLET PO SCH (09:24)
[2020-11-13 13:48] VITALS: BP 110/66
[2020-11-13] MEDS ORDERED: ALBUTEROL/IPRATROPIUM 2.5MG/0.5MG, 3 ML HHN SCH (14:00)
[2020-11-13] MEDS ORDERED: AZITHROMYCIN 500 MG TABLET PO ONE (14:00)
[2020-11-13] MEDS ORDERED: NICOTINE 14MG/24 HR PATCH.TD24 TD SCH (20:00)
[2020-11-13] MEDS: SUCRALFATE 1 GM/10 ML UDC PO SCH (20:08)
[2020-11-13] MEDS: TEMAZEPAM 15 MG CAPSULE PO PRN (20:08)
[2020-11-13] MEDS: OLANZAPINE 10 MG TABLET PO SCH (20:09)
[2020-11-13] MEDS: THIAMINE 200 MG, FOLIC ACID 1 MG in D5%-0.9% NACL 1,000 ML IV SCH (20:09)
[2020-11-13 21:05] VITALS: BP 126/74
[2020-11-14 02:30] VITALS: BP 130/86
[2020-11-14] MEDS: PANTOPRAZOLE 40MG TABLET PO SCH ×2 (06:20→14:47)
[2020-11-14 08:20] VITALS: BP 110/72
[2020-11-14] MEDS ORDERED: AZITHROMYCIN 250 MG TABLET PO SCH (09:00)
[2020-11-14] MEDS: MULTIVITAMIN 1 TABLET PO SCH (09:33)
[2020-11-14] MEDS: ESCITALOPRAM 10MG TABLET PO SCH (09:33)
[2020-11-14] MEDS: FOLIC ACID 1 MG TABLET PO SCH (09:33)
[2020-11-14] MEDS: THIAMINE 100MG TABLET PO SCH (09:33)
[2020-11-14] MEDS: SUCRALFATE 1 GM/10 ML UDC PO SCH (09:33)
[2020-11-14] MEDS ORDERED: PANT40TA6 PO (12:11)
[2020-11-14] MEDS ORDERED: PRED20TA PO (12:11)
[2020-11-14] MEDS ORDERED: AZIT250T PO (12:11)
[2020-11-14] MEDS ORDERED: SUCR1ORA5 PO (12:11)
[2020-11-14 14:30] VITALS: BP 111/71
== END 2020-11-14 17:43 | disposition home or self-care (01) | DRG 378 ==
LOC: ED 17:11 → EDIP 17:29 → 5SO 18:15 → 4WST 11-12 13:10 → 4EST 11-13 21:08
PROVIDERS: ADMIT Internal Medicine; ATTEND Internal Medicine
DX: K29.21 Alcoholic gastritis with bleeding (principal); N17.9 Acute kidney failure, unspecified; E46 Unspecified protein-calorie malnutrition; E87.1 Hypo-osmolality and hyponatremia; F10.239 Alcohol dependence with withdrawal, unspecified; J44.1 Chronic obstructive pulmonary disease with (acute) exacerbation; K92.0 Hematemesis; L40.9 Psoriasis, unspecified; F32.9 Major depressive disorder, single episode, unspecified; D72.829 Elevated white blood cell count, unspecified; E83.39 Other disorders of phosphorus metabolism; E86.0 Dehydration; F15.10 Other stimulant abuse, uncomplicated; F17.210 Nicotine dependence, cigarettes, uncomplicated; F25.9 Schizoaffective disorder, unspecified; F41.9 Anxiety disorder, unspecified; K20.90 Esophagitis, unspecified without bleeding; Z59.0 Homelessness; Z81.8 Family history of other mental and behavioral disorders; Z79.899 Other long term (current) drug therapy; Z88.8 Allergy status to other drugs, medicaments and biological substances; Z68.32 Body mass index [BMI] 32.0-32.9, adult
CPT/HCPCS: 36415; 99291; J7042; 71045; 80048; 80053; 81001; 83690; 83735; 84100; 85025; 85610; 85730; 86850; 86900; 93005; 94640; G0378; J3411; J7030; J7040; J7512

== ENCOUNTER 2020-11-25 12:20 | Emergency (ER) | payer MEDICAID ==
[~2020-11-25] VITALS: Ht 172.7 cm; Wt 104.5 kg
[~2020-11-25 12:20] MED LIST changes: +PANT40TA6 PO; +SUCR1ORA5 PO
--- NOTE | 2020-11-25 12:33 | NUR ---
PT BIB EMS FOR BILATERAL FOOT SWELLING AND PAIN. PAIN 8/10. PT STATES THE FOOT SWELLING STARTED 5 DAYS AGO AND HAS WORSENED. PT DENIES CP OR SOB. BILATERAL DOV IN BOTH FEET WITH ERYTHEMA NOTED.
[2020-11-25 13:46] VITALS: BP 106/66
[2020-11-25 14:05] LABS: BASOPHILS % (AUTO) 1 % (0-1); EOSINOPHILS % (AUTO) 1 % (1-7); LYMPHOCYTES % (AUTO) 15 % (22-44); MEAN CORPUSCULAR HEMOGLOBIN 29.1 pg (27.5-34.5); MEAN CORPUSCULAR HGB CONC 32.9 g/dL (33.2-36.2); MEAN PLATELET VOLUME 7.4 fL (7.4-10.4); MONOCYTES % (AUTO) 9 % (2-9); NEUTROPHILS % (AUTO) 74 % (42-75); PLATELET COUNT 324 x10^3/uL (130-400); RED BLOOD COUNT 4.19 x10^6/uL (4.38-5.82); RED CELL DISTRIBUTION WIDTH 15.2 % (9.4-14.8)
[2020-11-25 14:06] LABS: MD NO
[2020-11-25 14:12] LABS: ALANINE AMINOTRANSFERASE 24 U/L (12-78); ALBUMIN 2.7 g/dL (3.4-5.0); ANION GAP 8 mmol/L (5-15); CALCIUM 8.2 mg/dL (8.5-10.1); CHLORIDE 104 mmol/L (98-107); CREATININE 0.79 mg/dL (0.7-1.3)
[2020-11-25 14:16] LABS: ALKALINE PHOSPHATASE 71 U/L (45-117); BILIRUBIN,TOTAL 0.4 mg/dL (0.2-1.0); TOTAL PROTEIN 6.6 g/dL (6.4-8.2)
== END 2020-11-25 15:21 | disposition home or self-care (01) ==
LOC: ED 14:54
DX: R60.0 Localized edema (principal); E88.09 Other disorders of plasma-protein metabolism, not elsewhere classified; M79.89 Other specified soft tissue disorders; M79.662 Pain in left lower leg; M79.661 Pain in right lower leg; R07.89 Other chest pain; F17.200 Nicotine dependence, unspecified, uncomplicated
CPT/HCPCS: 36415; 71045; 80053; 80320; 83880; 85025; 93005; 99285; G0480

== ENCOUNTER 2020-12-14 12:36 | Emergency (ER) | payer MEDICAID ==
[~2020-12-14] VITALS: Ht 182.9 cm; Wt 80.0 kg
--- NOTE | 2020-12-14 13:09 | NUR ---
PT BIB EMS FOR ETOH. PT RESP EVEN AND UNLABORED. PT UNCOOPERATIVE.
--- NOTE | 2020-12-14 13:27 | NUR ---
RECEIVED REPORT FROM JOEL WOO, PLAN OF CARE DISCUSSED
--- NOTE | 2020-12-14 14:15 | NUR ---
PT SLEEPING, RESP EVEN AND UNLABORERED, CONTINOUS SP02 ON PATIENT.
[2020-12-14 14:19] LABS: ALBUMIN 3.1 g/dL (3.4-5.0); ANION GAP 7 mmol/L (5-15); CHLORIDE 106 mmol/L (98-107); CREATININE 0.77 mg/dL (0.7-1.3)
--- NOTE | 2020-12-14 15:48 | NUR ---
PT SLEEPING RESP EVEN AND UNLABORED
--- NOTE | 2020-12-14 18:53 | NUR ---
REPORT TO ANTOINETTE WOO, PLAN OF CARE DISCUSSED
--- NOTE | 2020-12-14 18:55 | NUR ---
RECEIVED BS REPORT FROM CHILO BROWN TO ASSUME CARE OF PT. AT THIS TIME. PT. RESTING ON GURNEY WITH EYES CLOSED. RESPIRATIONS EVEN, NON-LABORED. OPENS EYES TO VERBAL STIMULI BUT APPEARS TO FALL BACK ASLEEP QUICKLY. ALL SAFETY MEASURES OBSERVED.
--- NOTE | 2020-12-14 19:50 | NUR ---
PT. CONTINUES RESTING ON GURNEY WITH EYES CLOSED. RESPIRATIONS VISIBLE AND NON-LABORED. ALL SAFETY MEASURES MAINTAINED.
--- NOTE | 2020-12-14 20:08 | NUR ---
PT. REMAINS VERY SLEEPY. ATTEMPTED TO GET PT. TO EAT SANDWICH PROVIDED. PT. REMAINS VERY DROWSY AND UNABLE TO KEEP EYES OPEN LONG ENOUGH TO EAT AT THIS TIME.
--- NOTE | 2020-12-14 20:21 | NUR ---
PT. DID WAKE AND EAT 1/2 OF STANDWICH PROVIDED. PT. STATES "THAT SHIT IS GARBAGE, I EAT BETTER THAN THAT FROM 711." PT. GOT UP FORM DEBBIE AND AMBUALTED TO BR IN HARRELL. PT. ABLE TO MAINTAIN OWN BODY WEIGHT WITH AMBULATION. PT. VERBALLY AGRESSIVE TOWARD THIS RN. LITMITS SET WITH PT.
--- NOTE | 2020-12-14 20:25 | NUR ---
UPDATED DR. LANG THAT PT. IS NOW AMBULAORY. AWAITING D/C ORDERS/PAPERS.
[2020-12-14 20:34] VITALS: BP 115/76
== END 2020-12-14 20:38 | disposition home or self-care (01) ==
LOC: ED 13:08
DX: F10.120 Alcohol abuse with intoxication, uncomplicated (principal); Y90.0 Blood alcohol level of less than 20 mg/100 ml; J44.9 Chronic obstructive pulmonary disease, unspecified; G40.909 Epilepsy, unspecified, not intractable, without status epilepticus
CPT/HCPCS: 36415; 80048; 80320; 82040; 99285; G0480

== ENCOUNTER 2020-12-16 00:20 | Emergency (ER) | payer MEDICAID ==
[~2020-12-16] VITALS: Ht 170.2 cm; Wt 110.0 kg
[2020-12-16 00:23] VITALS: BP 110/68
--- NOTE | 2020-12-16 00:54 | NUR ---
pt resting on [facility]. attached to bp and spo2. bed rails up x 2
--- NOTE | 2020-12-16 04:05 | NUR ---
pt ambulatory to the exit with a steady gait. pt stating "fuck you. you're a bitch. fuck with me. you need a good fuck, you fucking bitch" pt thanked for his company.
== END 2020-12-16 04:09 | disposition home or self-care (01) ==
LOC: ED 03:45
DX: F10.120 Alcohol abuse with intoxication, uncomplicated (principal); F17.210 Nicotine dependence, cigarettes, uncomplicated; J44.9 Chronic obstructive pulmonary disease, unspecified; Y90.0 Blood alcohol level of less than 20 mg/100 ml
CPT/HCPCS: 99283; 99406

== ENCOUNTER 2021-01-21 15:28 | Emergency (ER) | payer MEDICAID ==
[~2021-01-21] VITALS: Ht 175.3 cm; Wt 90.0 kg
--- NOTE | 2021-01-21 15:33 | NUR ---
PT BIB [facility]. PT STATES HE HAS OPEN WOUNDS OF LOWER EXT. PT REFUSING TO GET IN GOWN AT THIS TIME. PER EMS PT HAS HX OF ETOH ABUSE AND HAS DRANK A PINT TODAY OF VODKA. PT YELLING AT THIS RN "I DIDN'T EVEN FUCKING WANT TO COME HERE".
--- NOTE | 2021-01-21 15:35 | NUR ---
PT ALSO REFUSING VITAL SIGNS AT THIS TIME.
[2021-01-21] MEDS ORDERED: BACITRACIN ZINC OINT 500U/GM, 0.9 GM ONE (17:12)
[2021-01-21] MEDS ORDERED: NEOSPORIN OINT. PKT 1 PACKET ONE (17:21)
[2021-01-21 18:09] VITALS: BP 110/75
--- NOTE | 2021-01-21 18:55 | NUR ---
ASSUMED CARE OF PATIENT. REPORT GIVEN FROM CHILO LINDSEY. PT YELLING IN THE HARRELL. PT REDIRECTED BACK TO ROOM. PT REQUESTING A CANE.
--- NOTE | 2021-01-21 19:09 | NUR ---
CANE AND BUS PASS PROVIDED PER PT REQUEST. PT AMBULATORY TO DISCHARGE DESK.
== END 2021-01-21 19:11 | disposition home or self-care (01) ==
LOC: ED 19:05
DX: F10.129 Alcohol abuse with intoxication, unspecified (principal); L03.116 Cellulitis of left lower limb; Z59.0 Homelessness; Y90.0 Blood alcohol level of less than 20 mg/100 ml
CPT/HCPCS: 99283

== ENCOUNTER 2021-01-25 16:47 | Emergency (ER) | payer MEDICAID ==
[~2021-01-25] VITALS: Ht 172.7 cm; Wt 91.0 kg
--- NOTE | 2021-01-25 17:05 | NUR ---
task RN: pt BBIB ambulance from his dentist office where he was found to be intoxicatd and yelling at staff pt is uncooperative with assessment and only answering some questions. have attempted to place pulse ox monitor numerous times but pt repeatedly removing and throwing it on the ground no family at bedside. report to Lorie WOO
[2021-01-25 17:07] VITALS: BP 97/48
[2021-01-25] MEDS ORDERED: MUPIROCIN OINT 2%, 1 GM APPL. TP ONE (17:15)
[2021-01-25] MEDS ORDERED: SULFAMETH./TRIMETHOPRIM DS 800MG/160MG TABLET PO ONE (17:30)
--- NOTE | 2021-01-25 18:08 | NUR ---
Bilateral lower leg chronic wounds dressed with bactroban ointment. Pt cursing at staff and calling names. Too intoxicated to follow commands or to take oral abx at this time. Will monitor for improvement.
--- NOTE | 2021-01-25 18:11 | NUR ---
pt unable to locate phone. Attempted to help check pockets, but pt aggressive and left room.
--- NOTE | 2021-01-25 19:03 | NUR ---
Report to Lily.
[2021-01-25] MEDS ORDERED: SULFAMETH./TRIMETHOPRIM DS 800MG/160MG TABLET ONE (19:06)
--- NOTE | 2021-01-25 19:16 | NUR ---
PT AMBULATORY TO DISCHARGE DESK WITH A STEADY GAIT. PT TOOK ABX HERE IN ED WITHOUT PROTEST. PT EDUCATED ON IMPORTANCE OF FILLING AND TAKE ABX PERSCRIPTION PROVIDED TO HIM. PT VERBALIZED UNDERSTNADING. PT PROVIDED CANE PER PT REQUEST. PT PROVIDED TAXI VOUCHER TO [facility] DETENTION PER REQUEST.
== END 2021-01-25 19:20 | disposition home or self-care (01) ==
LOC: ED 17:45
DX: F10.229 Alcohol dependence with intoxication, unspecified (principal); L98.9 Disorder of the skin and subcutaneous tissue, unspecified; J44.9 Chronic obstructive pulmonary disease, unspecified; Y90.0 Blood alcohol level of less than 20 mg/100 ml
CPT/HCPCS: 99283

== ENCOUNTER 2021-05-03 00:30 | Emergency (ER) | payer MEDICAID ==
[~2021-05-03] VITALS: Ht 182.9 cm; Wt 100.0 kg
[2021-05-03 00:40] VITALS: BP 116/87
[2021-05-04] MEDS ORDERED: CLON-364 PO (07:50)
[2021-05-04] MEDS ORDERED: HYDR50TA99 PO (07:50)
[2021-05-04] MEDS ORDERED: AMOX-291 PO (07:50)
[2021-05-04] MEDS ORDERED: BUPR100T8 PO (07:50)
[2021-05-04] MEDS ORDERED: OMEP-419 PO (07:50)
[2021-05-04] MEDS ORDERED: BENZ1TAB61 PO (07:50)
== END 2021-05-03 01:01 ==
LOC: ED 00:35
DX: F10.220 Alcohol dependence with intoxication, uncomplicated (principal); F15.10 Other stimulant abuse, uncomplicated; Y90.9 Presence of alcohol in blood, level not specified; F17.210 Nicotine dependence, cigarettes, uncomplicated; J44.9 Chronic obstructive pulmonary disease, unspecified
CPT/HCPCS: 99283; 99406

== ENCOUNTER 2021-05-04 01:14 | Emergency (ER) | payer MEDICAID ==
[~2021-05-04] VITALS: Ht 175.3 cm; Wt 70.0 kg
[2021-05-04 01:19] VITALS: BP 117/73
--- NOTE | 2021-05-04 01:23 | NUR ---
BIBA FOR ETOH INTOXICATION AND GLF. BLEEDING NOTED TO BACK OF HEAD. PT ENDORSES MIDLINE CERVICAL TENDERNESS, PRESENTS AGITATED AND COMBATIVE. PT RIPPED OFF C-COLLAR UPON ARRIVAL, SECURITY CALLED AND IN ROOM FOR STAFF SAFETY. ERPA LONG AT BEDSIDE FOR EVAL.
[2021-05-04] MEDS ORDERED: DIPH,PERTUSS(ACELL),TET VAC/PF 0.5 ML IM-VACC ONE (01:30)
--- NOTE | 2021-05-04 01:35 | NUR ---
PT REFUSING TREATMENT, EDUCATED ON RISKS OF LEAVING AMA, VERBALIZED UNDERSTANDING. PT WHEELED OUT OF UNIT ESCORTED BY SECURITY.
[2021-05-04] MEDS ORDERED: OMEP-419 PO (07:50)
[2021-05-04] MEDS ORDERED: AMOX-291 PO (07:50)
[2021-05-04] MEDS ORDERED: HYDR50TA99 PO (07:50)
[2021-05-04] MEDS ORDERED: BENZ1TAB61 PO (07:50)
[2021-05-04] MEDS ORDERED: CLON-364 PO (07:50)
[2021-05-04] MEDS ORDERED: BUPR100T8 PO (07:50)
== END 2021-05-04 02:07 | disposition left against medical advice (07) ==
LOC: ED 01:30
DX: S01.01XA Laceration without foreign body of scalp, initial encounter (principal); M54.2 Cervicalgia; F15.10 Other stimulant abuse, uncomplicated; F10.220 Alcohol dependence with intoxication, uncomplicated; F17.210 Nicotine dependence, cigarettes, uncomplicated; J44.9 Chronic obstructive pulmonary disease, unspecified; F17.200 Nicotine dependence, unspecified, uncomplicated; W01.0XXA Fall on same level from slipping, tripping and stumbling without subsequent striking against object, initial encounter; Y93.89 Activity, other specified; Y92.410 Unspecified street and highway as the place of occurrence of the external cause; Y99.8 Other external cause status
CPT/HCPCS: 99283

== ENCOUNTER 2021-05-04 02:39 | Observation (INO) | payer MEDICAID ==
[~2021-05-04] VITALS: Ht 172.7 cm; Wt 90.0 kg
[2021-05-04 08:00] VITALS: BP 122/65
== END 2021-05-04 14:05 | disposition home or self-care (01) ==
LOC: ED 03:04 → EDIP 07:55
PROVIDERS: ADMIT Emergency Medicine; ATTEND Emergency Medicine
DX: S01.01XA Laceration without foreign body of scalp, initial encounter (principal); R41.82 Altered mental status, unspecified; G40.909 Epilepsy, unspecified, not intractable, without status epilepticus; F10.220 Alcohol dependence with intoxication, uncomplicated; J44.9 Chronic obstructive pulmonary disease, unspecified; F25.9 Schizoaffective disorder, unspecified; F15.90 Other stimulant use, unspecified, uncomplicated; F43.10 Post-traumatic stress disorder, unspecified; F32.9 Major depressive disorder, single episode, unspecified; F17.200 Nicotine dependence, unspecified, uncomplicated; W18.39XA Other fall on same level, initial encounter; Y92.524 Gas station as the place of occurrence of the external cause; Y93.89 Activity, other specified; Z63.8 Other specified problems related to primary support group; Z78.1 Physical restraint status; Z79.899 Other long term (current) drug therapy
CPT/HCPCS: 12001; 70450; 72125; 96372; 99285; G0378; J3486